=== PATIENT | female | born 1960 | race Caucasian/White ===

== ENCOUNTER 2019-11-22 01:09 | Day surgery (SDC) | payer BC, SELFPAY ==
[2019-11-20 10:15] VITALS: BMI 26.4
[2019-11-22 09:16] VITALS: BP 127/77; PULSE 91; RESP 18; TEMP 36.5; O2SAT 100; BMI 26.6
--- NOTE | 2019-11-22 09:17 | WPDANESEPPF ---
Anes - Initial Pre Proc Eval Procedure: Operation Date: 11/22/19 10:00 Proposed Procedures p Esophagogastroduodenoscopy & Screen Colonoscopy - David Short MD Date/Time: 11/22/19 09:17 Surgeon: Daivd Short MD Pre Op Diagnosis: Abdomen Pain, Neoplasm Screening Patient Data Age: 59 Gender: F Height: 5 ft 4 in Weight: 70 kg Allergies Allergy/AdvReac Type Severity Reaction Status Date / Time Penicillins Allergy Unknown Unknown Verified 11/22/19 08:55 Home Medications Medication Instructions Recorded Confirmed Type albuterol sulfate 90 mcg/actuation 2 inhalation INHALATION Q4H PRN 07/31/19 11/22/19 Rx aerosol inhaler #18 gm omeprazole 40 mg capsule,delayed See Rx Instructions .ROUTE 09/12/19 11/22/19 Rx release .COMPLEX #90 cap duloxetine 30 mg capsule,delayed 30 mg PO DAILY 10/04/19 11/22/19 History release fexofenadine 60 mg-pseudoephedrine 1 tablet PO DAILY 10/04/19 11/20/19 History ER 120 mg tablet,ext.release,12 hr fluticasone 250 mcg-salmeterol 50 1 inhalation INHALATION BID 10/04/19 11/22/19 History mcg/dose blistr powdr for inhalation Patient hx anesthesia problems: none Family hx anesthesia problems: none PMFSH Past Medical History Medical History Bipolar affective disorder, currently manic, mild Colon cancer screening Mild intermittent asthma without complication Family History Family History Other Cerebrovascular accident Hypertension Social History Social History Smoking status: Never smoker Alcohol intake: current Substance use: never Substance use type: does not use Gender identity (if verbalized by the patient): Female Spiritual care concerns: No Agree to blood products: Yes Anes - Eval Final PreProcedure Day of Procedure 11/22/19 09:17 Patient weight: overweight Heart: regular rate and rhythm Lungs: clear to auscultation Airway: Mallampati scale class II Neurological: alert and oriented Last oral intake: >/= 8 hours ASA classification: II Emergent: no Anesthetic plan: proceed Anesthesia type and monitoring: general GIVS and standard monitoring Informed Consent: The patient's anesthetic plan and its attendant risks and benefits were discussed with the patient/family/POA. Questions were solicited and answers provided to the satisfaction of the patient/family/POA.
[2019-11-22] MEDS: LACTATED RINGERS 1,000 ML 150 ML IV CONT (09:20)
--- NOTE | 2019-11-22 09:44 | PM.HPGS ---
History of Present Illness History of Present Illness Consent: Risks, benefits, and alternatives have been discussed and questions answered. Patient agrees to proceed with procedure. Chief complaint: Abdomen Pain, Neoplasm Screening Narrative: Carley Zapata is a 59 year old female here with luq pain better with ppi, also needs colon screening Review of Systems Constitutional: Constitutional: Denies headache(s) and Denies weakness Eyes: Eyes: Denies blurry vision ENT: Reports Normal hearing present, Denies headache(s) and Denies neck pain Cardiovascular: Cardiovascular: Denies chest pain and Denies dyspnea Respiratory: Respiratory: Denies dyspnea Gastrointestinal: Gastrointestinal: Reports no additional gastrointestinal complaints Genitourinary: Genitourinary: Denies dysuria Musculoskeletal: Musculoskeletal: Denies neck pain Integumentary/Breasts: Skin/Breast: Denies dry skin Neurologic: Reports Normal hearing present, Denies headache(s) and Denies weakness Psychiatric: Psychiatric: Denies anxiety Endocrine: Endocrine: Denies change in body appearance Hematologic/Lymphatic: Hematologic/Lymphatic: Denies easy bleeding Allergic/Immunologic: Allergic/Immunologic: Denies urticaria [facility] Past Medical History Medical History Bipolar affective disorder, currently manic, mild Colon cancer screening Mild intermittent asthma without complication Family History Family History Other Cerebrovascular accident Hypertension Social History Social History Smoking status: Never smoker Alcohol intake: current Substance use: never Substance use type: does not use Gender identity (if verbalized by the patient): Female Spiritual care concerns: No Agree to blood products: Yes Meds Home Medications and Allergies Home Medications Medication Instructions Recorded Confirmed Type albuterol sulfate 90 mcg/actuation 2 inhalation INHALATION Q4H PRN 07/31/19 11/22/19 Rx aerosol inhaler #18 gm omeprazole 40 mg capsule,delayed See Rx Instructions .ROUTE 09/12/19 11/22/19 Rx release .COMPLEX #90 cap duloxetine 30 mg capsule,delayed 30 mg PO DAILY 10/04/19 11/22/19 History release fexofenadine 60 mg-pseudoephedrine 1 tablet PO DAILY 10/04/19 11/20/19 History ER 120 mg tablet,ext.release,12 hr fluticasone 250 mcg-salmeterol 50 1 inhalation INHALATION BID 10/04/19 11/22/19 History mcg/dose blistr powdr for inhalation Allergies Allergy/AdvReac Type Severity Reaction Status Date / Time Penicillins Allergy Unknown Unknown Verified 11/22/19 08:55 Vital Signs Vital Signs - 24 hr 11/22/19 09:16 Temperature 97.7 F Pulse Rate 91 Respiratory Rate 18 Blood Pressure 127/77 Pulse Oximetry 100 Exam Const: General: comfortable and no acute distress HENMT: General nose exam: Normal nares present Eyes: General: appearance normal, both eyes and all related structures Neck: Neck: no JVD Resp: Auscultation: clear to auscultation bilaterally Cardio: Rate: regular rate Rhythm: regular rhythm GI: Inspection: non-distended GI Palp: Yes Soft to palpation Skin: General skin exam: normal color Neuro: General: gait normal Speech: normal speech Extrem: General: normal to inspection Psych: Mental Status: mental status grossly normal Assessment and Plan Assessment and plan (1) Chronic LUQ pain: Code(s): R10.12 - Left upper quadrant pain; G89.29 - Other chronic pain Status: Acute Assessment and Plan: will proceed with egd, consider bx (2) Colon cancer screening: Code(s): Z12.11 - Encounter for screening for malignant neoplasm of colon Status: Acute Assessment and Plan: needs colonoscopy
[2019-11-22 10:19] VITALS: BP 113/57; PULSE 91; RESP 19; O2SAT 99
--- NOTE | 2019-11-22 10:22 | SUR.PHASEII ---
1020 patient awake, talking with doctor. Jenna RAVI
[2019-11-22 10:30] VITALS: BP 113/68; PULSE 91; RESP 17; O2SAT 100
[2019-11-22 10:40] VITALS: BP 119/68; PULSE 89; RESP 15; O2SAT 100
== END 2019-11-22 10:50 | disposition home or self-care (01) ==
PROVIDERS: PCP Family Medicine; Visit Provider Internal Medicine Gastroenterology
PROC: 0DJ08ZZ Inspection of Upper Intestinal Tract, Via Natural or Artificial Opening Endoscopic (ICD-10-PCS; CPT 43235; principal; 2019-11-22 10:00)
DX: Z12.11 Encounter for screening for malignant neoplasm of colon (principal); K57.30 Diverticulosis of large intestine without perforation or abscess without bleeding; K44.9 Diaphragmatic hernia without obstruction or gangrene; K29.50 Unspecified chronic gastritis without bleeding; R10.12 Left upper quadrant pain; G89.29 Other chronic pain; F31.9 Bipolar disorder, unspecified; J45.20 Mild intermittent asthma, uncomplicated
CPT/HCPCS: 45378; 43239; 88305; J2704; J7120

== ENCOUNTER 2020-11-29 16:52 | Outpatient (CLI) | payer BC, SELFPAY ==
--- NOTE | ~2020-11-29 | US_ITS ---
EXAMINATION: US venous doppler LE RT EXAM DATE: 11/29/2020 17:15 INDICATION: M79.89 - Other specified soft tissue disorders right leg pain. TECHNIQUE: Multiple grayscale, color flow and Doppler images of the right lower extremity deep venous system were obtained and reviewed. Comparison is made to prior examination from 11/11/2018. FINDINGS: The right common femoral, femoral and profunda veins demonstrate normal color flow, respira tory variation, augmentation and compressibility. Compressibility, color flow confirmed within the r ight popliteal, posterior tibial, peroneal, and greater saphenous veins. IMPRESSION: 1. No right lower extremity deep venous thrombosis. Reviewed, dictated and finalized at location A.
== END 2020-11-29 16:53 | disposition home or self-care (01) ==
PROVIDERS: PCP Family Medicine; Visit Provider Family Medicine
DX: C50.919 Malignant neoplasm of unspecified site of unspecified female breast (principal); M79.604 Pain in right leg; M79.89 Other specified soft tissue disorders
CPT/HCPCS: 93971

== ENCOUNTER → 2020-11-30 11:49 | Outpatient (CLI) | payer BC, SELFPAY ==
--- NOTE | ~2020-11-30 | XR_ITS ---
XR knee RT 3V DATE: 11/30/2020 12:17 INDICATION: Right knee pain TECHNIQUE: [place] and standing AP and lateral views COMPARISON: None FINDINGS: No fracture or dislocation or joint effusion. No periosteal reaction or bone destruction, c hondrocalcinosis or radiopaque intra-articular loose body. There is slight periarticular spurring of the patella. Minimal loss of height at medial compartment j oint space Joint spaces are otherwise relatively preserved. IMPRESSION: Mild osteoarthritis Reviewed, dictated and finalized at location A. IMPRESSION: Mild osteoarthritis
== END ==
PROVIDERS: PCP Family Medicine; Visit Provider Family Medicine
DX: M25.561 Pain in right knee (principal); M17.11 Unilateral primary osteoarthritis, right knee
CPT/HCPCS: 73562

== ENCOUNTER 2021-04-30 16:16 | Outpatient (CLI) | payer BC, SELFPAY ==
--- NOTE | ~2021-04-30 | US_ITS ---
EXAMINATION: US venous doppler [facility] DATE: 04/30/2021 16:47 INDICATION: Left lower limb swelling. TECHNIQUE: Grayscale ultrasound images without and with compression and Doppler ultrasound images of the bilateral lower extremity veins were obtained. COMPARISON: Ultrasound 11/11/2018, 11/29/2020 FINDINGS: The visualized portions of right common femoral vein, profunda (deep) femoral vein, femoral vein, pop liteal vein, peroneal veins, posterior tibial veins, and greater saphenous vein outflow are patent. The visualized portions of left common femoral vein, profunda femoral vein, femoral vein, popliteal v ein, peroneal veins, posterior tibial veins, and greater saphenous vein outflow are patent. IMPRESSION: 1. No deep venous thrombosis. Reviewed, dictated and finalized at location A.
== END 2021-04-30 16:17 | disposition home or self-care (01) ==
LOC: ANHIMG 16:21
PROVIDERS: PCP Family Medicine
DX: M79.89 Other specified soft tissue disorders (principal)
CPT/HCPCS: 93970

== ENCOUNTER 2024-05-11 08:30 | Outpatient (RCR) | payer BC, SELFPAY ==
--- NOTE | 2024-02-17 09:49 | OTOPEVAL1 ---
Assessment and note entered by Ramon Woods, LIO/Krysta, CHT OT Evaluation 02/17/24 Diagnosis Trigger thumb Subjective Information Patient reports experiencing a trigger thumb on her right, dominant thumb for about 2-3 months. She reports her symptoms are the worst first thing in the morning and before bed. She reports when she gets moving it feels better. Patient reports difficulties with turning a doorknob, lifting a cup of coffee, etc. Having to intermittently use her left hand for tasks. Reported Pain Level Pain Score 0: Self Report Additional Pain Score Comments Patient reports the thumb hasn't been painful in the last week, but she is fearful that the pain is going to come back. Assessment OT Clinical Summary Patient referred to OT with dx of trigger thumb of her right, dominant hand. She presents with catching with active thumb IP flexion. Passive ROM is WNL. Fabricated and issued a custom thumb IP immobilizer to rest the FPL tendon. Issued passive and active ROM HEP, discussed use of heat/ice, and use of a finger compression sleeve to reduce swelling. She demonstrates excellent understanding of all materials. Continued follow up indicated for HEP progression, manual therapy, use of modalities, and any splinting modifications. Plan of Care Interventions Therapeutic Exercise,Manual Therapy,Therapeutic Activities,Hot Pack/Cold Pack,Check Out for Orthotic/Pr,Ultrasound,Paraffin OT Services Indicated Yes Treatment Frequency and 1x/week for 4 visits Duration These treatments will address the objective and functional deficits as defined above. The patient will be advanced safely and appropriately in order for the patient to progress towards his/her prior level of function. Additional exercises will be introduced and as well as a comprehensive home exercise program upon discharge, if needed, ?to ensure carryover of functional gains achieved in the clinic. This treatment plan has been reviewed and agreement upon by the patient.
--- NOTE | 2024-02-17 09:49 | OPREHPOC ---
Outpatient Therapy Plan of Care This is a Multidisciplinary Plan of Care that may contain components documented by all disciplines (PT, OT, and ST.) OT Problem 1 OT Problem #1 Knowledge Deficit OT Goal 1 Goal 1. Patient to be independent with instructed materials. 2. Patient to adhere to splint wearing schedule and splint weaning schedule as indicated. Target Visit 4 OT Problem 2 OT Problem #2 Impaired Flexibility OT Goal 1 Goal 1. Patient to be able to complete composite thumb flexion without signs of triggering. Target Visit 4 OT Problem 3 OT Problem #3 Impaired Strength OT Goal 1 Goal 1. Patient to be able to complete right hand remedy developer/ pinch strengthening with yellow putty without signs of triggering. Target Visit 4
--- NOTE | 2024-03-30 14:01 | OTOPPROG ---
Assessment and note entered by Ramon Woods, LIO/Krysta, CHT OT Progress Update 03/30/24 Assessment Status Progress Diagnosis Trigger thumb Subjective Information Patient reports overall feeling progress in the thumb, noting she is experiencing less triggering. She continues to experience some triggering and she sometimes has to use her left hand to straighten the thumb, but overall she has had less instances of this. She has a thumb IP immobilizer that she finds hard to wear at work or when walking the dog. She has been trying to ice it at night when she feels like her inflammation is at it's worse. She has tried to modify tasks by using her left hand to allow her right thumb to rest. Assessment OT Clinical Summary Patient referred to OT with dx of trigger thumb of her right, dominant hand. She has been participating in OT x5 weeks with the goal of reducing inflammation and triggering. She is making progress with reduced catching and not as strong of a catch when it does trigger. She continues to display signs of a trigger finger, however. Continued skilled OT indicated to continue to reduce inflammation and to improve functional strength of her right hand/thumb. Plan of Care Interventions Therapeutic Exercise,Manual Therapy,Therapeutic Activities,Hot Pack/Cold Pack,Check Out for Orthotic/Pr,Ultrasound,Paraffin OT Services Indicated Yes Treatment Frequency and 1x/week for 5 visits Duration These treatments will address the objective and functional deficits as defined above. The patient will be advanced safely and appropriately in order for the patient to progress towards his/her prior level of function. Additional exercises will be introduced and as well as a comprehensive home exercise program upon discharge, if needed, ?to ensure carryover of functional gains achieved in the clinic. This treatment plan has been reviewed and agreement upon by the patient.
--- NOTE | 2024-03-30 14:01 | OPREHPOC ---
Outpatient Therapy Plan of Care This is a Multidisciplinary Plan of Care that may contain components documented by all disciplines (PT, OT, and ST.) OT Problem 1 OT Problem #1 Knowledge Deficit OT Goal 1 Goal / Goal Update 1. Patient to be independent with instructed materials. 2. Patient to adhere to splint wearing schedule and splint weaning schedule as indicated. ---OT POC UPDATE 03/30/24--- 1. Met 2. Met Target Visit 10 OT Problem 2 OT Problem #2 Impaired Flexibility OT Goal 1 Goal / Goal Update 1. Patient to be able to complete composite thumb flexion without signs of triggering. ---OT POC UPDATE 03/30/24--- 1. Inconsistently met, continue goal Target Visit 10 OT Problem 3 OT Problem #3 Impaired Strength OT Goal 1 Goal / Goal Update 1. Patient to be able to complete right hand fire regulator/ pinch strengthening with yellow putty without signs of triggering. ---OT POC UPDATE 03/30/24--- 1. Not met, continue goal Target Visit 10
--- NOTE | 2024-05-11 09:14 | OTOPDC ---
Assessment and note entered by Ramon Woods, LIO/Krysta, CHT OT Discharge Summary 05/11/24 Diagnosis Trigger thumb Subjective Information Patient reports progress with the thumb, noting she has experienced only a couple instances of triggering in the last 2 weeks and each instance was only 1 trigger and it did not continue. She has returned to doing dishes, holding the dog leash, sewing, and she potted some plants the other day without difficulty. She has been experiencing no pain. She has progressed out of wearing the splint. She does not feel like she needs to modify tasks and she does not avoid using her right hand. Reported Pain Level Pain Score 0: Self Report Additional Pain Score Comments No pain . Reports fluctuating soreness and stiffness . Assessment OT Clinical Summary Patient referred to OT with dx of trigger thumb of her right, dominant hand. She has been participating in OT x11 weeks with the goal of reducing inflammation and triggering. She has made excellent progress - she has returned to using her hand unrestricted. She is completing resistive pinching without triggering. She has reported 2 instances of catching in the last 2 weeks, however , she is currently independent with all materials. Discussed continued strengthening and use of ice at the end of her day to continue to manage residual inflammation of the tendon. She demonstrates and verbalizes excellent understanding of all materials. D/C with HEP. Plan of Care OT Services Indicated No
== END 2024-05-11 10:15 | disposition home or self-care (01) ==
LOC: ANHGOSHOT 08:30
PROVIDERS: PCP Nurse Practitioner Family; Visit Provider Nurse Practitioner Family
DX: M65.319 Trigger thumb, unspecified thumb (principal)
CPT/HCPCS: 97018; 97035; 97110; 97140; 97165; L3933

== ENCOUNTER 2024-11-27 11:06 | Observation (INO) | payer BC, SELFPAY ==
[2024-11-27] VITALS (26 sets, daily range): BP systolic 94–127; BP diastolic 52–95; PULSE 68–158; RESP 14–25; TEMP 36.6–36.8; O2SAT 94–100; BMI 24.6
--- NOTE | 2024-11-27 | ECHO_ITS ---
Patient Info Name: Carley Zapata Age: 64 years : 1960 Gender: Female Ht: 64 in Wt: 143 lbs BSA: 1.72 m2 HR: 89 bpm BP: 101 / 82 mmHg Heart Rhythm: Atrial Fibrillation Technical Quality: Good Exam Date: 11/27/2024 1:49 PM Exam Location: Echo Lab Patient Status: Emergency Admit Date: 11/27/2024 Staff Ordering Physician: Richard Jacob MD Industrial Mechanic: Dahiana Valderrama RDCS Attending Provider: Richard Jacob MD Referring Physician: Cecil MATTA; Exam Type: CA echo doppler color flow Study Info Indications - New onset Afib Complete two-dimensional, color flow and Doppler transthoracic echocardiogram is performed. Summary 1. Complete two-dimensional, color flow and Doppler transthoracic echocardiogram is performed. 2. There is normal biventricular size and systolic function. 3. There are no significant valvular abnormalities. 4. Dilated inferior vena cava with <50% collapse upon inspiration consistent with significantly elevated right atrial pressure, 15 mmHg. Left Ventricle The left ventricle is normal in size and systolic function. The left ventricular ejection fraction is visually estimated to be 50-55%. Right Ventricle The right ventricle is normal in size and systolic function. Left Atria The left atrium is normal size. Right Atria The right atrium is normal size. Atrial Septum The atrial septum visually appears intact. Aortic Valve The aortic valve is probably trileaflet and opens well. There is no aortic regurgitation. Pulmonic Valve The pulmonic valve is not well visualized. There is no color Doppler evidence of pulmonic valve regurgitation. Mitral Valve The mitral valve leaflets are thin and pliable. There is trace mitral regurgitation. Tricuspid Valve The tricuspid valve is normal. There is mild tricuspid regurgitation. Pericardium/Pleural Pericardium is normal in appearance with no evidence for significant pericardial effusion. Inferior Vena Cava Dilated inferior vena cava with <50% collapse upon inspiration consistent with significantly elevated right atrial pressure, 15 mmHg. Dilated inferior vena cava with <50% collapse upon inspiration consistent with significantly elevated right atrial pressure, 15 mmHg. Left Ventricular Outflow Tract Name Value Normal LVOT 2D LVOT Diameter 2.0 cm LVOT Doppler LVOT Peak Gradient 5 mmHg LVOT Mean Gradient 2 mmHg LVOT VTI 20 cm LVOT VTI/AV VTI Ratio 0.9 LVOT Stroke Volume 61 ml LVOT CO 5.6 l/min LVOT CI 3.2 l/min/m2 Pulmonic Valve Name Value Normal RVOT Doppler RVOT Peak Gradient 2 mmHg PV Doppler PV Peak Gradient 2 mmHg Mitral Valve Name Value Normal MV Doppler MV Decel [place] 580 cm/s2 MV PHT 47 ms MV Area (PHT) 4.7 cm2 4.0-5.0 MV Diastolic Function MV E Peak Velocity 95 cm/s MV A Peak Velocity 56 cm/s MV E/A 1.7 MV Decel Time 163 ms MV Annular TDI MV E/e' (Septal) 10.5 <=8.0 MV E/e' (Lateral) 10.3 <=8.0 MV E/e' (Average) 10.4 Tricuspid Valve Name Value Normal TV Regurgitation Doppler TR Peak Velocity 235 cm/s TR Peak Gradient 22 mmHg Estimated PAP/RSVP RA Pressure 15 mmHg <=5 PA Systolic Pressure 37 mmHg <36 RV Systolic Pressure 37 mmHg <36 Aortic Valve Name Value Normal AV Doppler AV Peak Velocity 115 cm/s AV Peak Gradient 5 mmHg AV Mean Gradient 3 mmHg AV VTI 23 cm AV Area (Cont Eq VTI) 2.7 cm2 >=3.0 AV Area (Cont Eq [place]) 2.8 cm2 AV Regurgitation 2D LVOT Area 3.0 cm2 Ventricles Name Value Normal LV Dimensions 2D/MM IVS Diastolic Thickness (2D) 0.7 cm 0.6-1.0 LVID Diastole (2D) 4.0 cm 3.8-5.2 LVIW Diastolic Thickness (2D) 0.7 cm 0.6-0.9 LVID Systole (2D) 2.9 cm 2.2-3.5 LVOT Diameter 2.0 cm LV Mass (2D Cubed) 75.37 g 67.00-162.00 LV Mass Index (2D Cubed) 44 g/m2 43-95 Relative Wall Thickness (2D) 0.32 LV Fractional Shortening/Ejection Fraction 2D/MM LV Fractional Shortening (2D) 29 % 27-45 LV EF (2D [place]) 56 % 54-74 LV Diastolic Volume (4C MOD) 48 ml LV EF (4C MOD) 62 % LV Diastolic Volume (2C MOD) 44 ml LV EF (2C MOD) 66 % LV Diastolic Volume (BP MOD) 48 ml 46-106 LV Diastolic Volume Index (BP MOD) 28 ml/m2 29-61 LV Systolic Volume (BP MOD) 17 ml 14-42 LV Systolic Volume Index (BP MOD) 10 ml/m2 8-24 LV EF (BP MOD) 64 % 54-74 LV Diastolic Length (4C) 7.1 cm LV Systolic Length (4C) 6.0 cm LV Stroke Volume (4C MOD) 29 ml Atria Name Value Normal LA Dimensions LA Volume (4C A-L) 30 ml LA Volume (BP A-L) 39 ml RA Dimensions RA Area (4C) 16.2 cm2 <=18.0 Report Signatures
--- NOTE | ~2024-11-27 | XR_ITS ---
EXAMINATION: XR chest 2V DATE: 11/27/2024 11:35 INDICATION: Shortness of breath. Heart palpitations. TECHNIQUE: PA and lateral views of the chest were obtained. COMPARISON: Chest radiograph dated 09/28/2005 FINDINGS: The lungs remain clear with no focal airspace opacities, pulmonary edema, pleural effusion or pneumot horax. The cardiomediastinal silhouette is normal. Surgical clips in the upper right breast consisten t with interval excisional biopsy. IMPRESSION: 1. No acute cardiopulmonary disease. Reviewed, dictated and finalized at location A.
--- NOTE | ~2024-11-27 | NM_ITS ---
EXAMINATION: NM bruno stress w perfusion DATE: 11/28/2024 12:04 INDICATION: Elevated troponin. Paroxysmal atrial fibrillation TECHNIQUE: Rest images were obtained following intravenous administration of 10.5 mCi Tc99m tetrofosm in (Myoview). The patient was infused intravenously with Lexiscan (Regadenoson). Then, 34.9 mCi Tc99m tetrofosmin (Myoview) was administered intravenously, and stress images were obtained. Data was norma nstructed into short axis and horizontal and vertical long axis SPECT images. Gated SPECT images were also obtained. COMPARISON: None. FINDINGS: There is no definite reversible or fixed perfusion abnormality to suggest ischemia or infar ction. There is normal left ventricular chamber size, wall motion and ejection fraction. Left ventr icular ejection fraction measures >70%. IMPRESSION: 1. Normal myocardial perfusion at rest and during stress. 2. Left ventricular ejection fraction measuring >70%. Reviewed, dictated and finalized at location A.
--- NOTE | 2024-11-27 11:08 | ECG_ITS ---
Test Date: 2024-11-27 11:18:01 Measurements Intervals [place] Rate: 153 P: 0 PA: 0 QRS: 60 QRSD: 72 T: 26 QT: 229 QTc: 366 Interpretive Statements ATRIAL FIBRILLATION WITH RAPID VENTRICULAR RESPONSE NONSPECIFIC ST & T-WAVE ABNORMALITY ABNORMAL RHYTHM ECG No previous ECG available for comparison Electronically Signed On 11-28-2024 14:36:58 CDT by Kiran Jeronimo M.D.
--- OUTSIDE RECORDS SUMMARY | 2024-11-27 11:25 | XMS_ITS | Clinical Summary ---
Author Organization Darin Locke [facility] Address [address] [place] [address] Care Team Providers Care Dust Collector Attendant Name Role Phone Stefano Mosquera MD Primary Care Provider [phone] Allergies Active Allergy Reactions Criticality Noted Date Comments Gadolinium-Containing Contra st Media Rash Low 11/18/2020 Latex Rash Low 11/04/2020 Penicillin Nausea and Vomiting Low 11/04/2020 Medications Advair Diskus 250-50 mcg/dose disk inhaler Take 1 Puff by inhalation daily. 10/29/19 21 Active omeprazole (PriLOSEC) 40 mg Capsule, Delayed Release(E.C.) Take 40 mg by mouth 1 time daily as needed for Other (See Comment) (reflux). 10/31/19 21 Active fexofenadine (LUCI) 60 mg tablet Take 60 mg by mouth 2 times daily as needed for Allergies. Active multivit with calcium,iron,mi n (WOMEN'S MULTIPLE VITAMINS ORAL) Take by mouth. Active albuterol HFA 90 mcg inhaler Take 2 Puffs by inhalation every 6 hours as needed for Shortness of Breath. Active vitamin D3-folic acid 5,000 unit- 1 mg Tablet Take 1 Tablet by mouth daily. Active fexofenadine-ps eudoephedrine SR 12 hour (LUCI-D) 60-120 mg tablet Take 1 Tablet by mouth 2 times daily as needed for Allergies or Congestion. Active ascorbic acid (VITAMIN C) 100 mg Tablet, Chewable Take 100 mg by mouth daily. Active lidocaine-prilo lillie (EMLA) 2.5-2.5 % CreamIndication s:HER2-positive carcinoma of right breast (CMS/HCC) Apply to affected area see administration instructions. 30 Gram 3 12/28/19 21 Active prochlorperazin e maleate (COMPAZINE) 10 mg tabletIndicatio ns:HER2-positiv e carcinoma of right breast (CMS/HCC) Take 1 Tablet (10 mg) by mouth every 6 hours as needed for Nausea/Emesis. 60 Tablet 3 12/28/19 21 Active ondansetron (Zofran) 4 mg TabletIndicatio ns:HER2-positiv e carcinoma of right breast (CMS/HCC) Take 1 Tablet (4 mg) by mouth every 8 hours as needed for Nausea/Emesis. 60 Tablet 3 12/28/19 21 Active hydroCHLOROthia zide (MICROZIDE) 12.5 mg capsule Take 12.5 mg by mouth daily. Active alendronate (Fosamax) 70 mg tabletIndicatio ns:Osteopenia, unspecified location Take 1 Tablet (70 mg) by mouth every 7 days. empty stomach before other meds,with 8oz of water, stay upright 30 min 12 Tablet 3 06/16/20 23 Active anastrozole (ARIMIDEX) 1 mg tabletIndicatio ns:Malignant neoplasm of central portion of right breast in female, estrogen receptor positive (CMS/HCC) TAKE 1 TABLET(1 MG) BY MOUTH DAILY 90 Tablet 3 10/13/19 24 Active Active Problems Problem Noted Date Diagnosed Date Vitamin D deficiency 11/22/2020 Malignant neoplasm of centra l portion of right breast in female, estrogen receptor positive 10/17/2020 Cancer Staging:Clinical stage from 11/17/2020:Stage IA(cT1b, cN0, cM0, G3, ER+, VT+, HER2+) - Signed by Ximena Harkins MD on 11/17/2020 HER2-positive carcinoma of right breast 10/18/19 21 Encounters Date Type Department Care Team Description 10/31/2024 External Device Data STL ABSTRACTION Provider, Abstract 09/19/2024 External Device Data STL ABSTRACTION Provider, Abstract 09/06/2024 External Device Data STL ABSTRACTION Provider, Abstract 09/05/2024 External Device Data STL ABSTRACTION Provider, Abstract from Last 3 Months Immunizations Immunization Administration Dates Next Due (Texifter)(12 YR UP) COVID-19 VACCINE - EMERGENCY USE AUTHORIZATION, MRNA, [id number](PF) 30 MCG/0.3 ML IM SUSP 06/26/2021 Family History Medical History Relation Name Comments Healthy Daughter Dementia Father Hypertension Father Anemia Maternal Aunt Cancer Maternal Aunt Blood Endometrial Cancer Maternal Aunt Lymphoma Maternal Aunt Other Maternal Grandfather pneumon ia Unknown Maternal Grandfather wh en mom was 8 Unknown Maternal Grandmother wh en mom was 8 Other Mother Emphysema Paternal Grandfather Diabetes Paternal Grandmother Heart Disease Paternal Grandmother Thyroid Disease Sister Breast Cancer Neg Hx Colon Cancer Neg Hx Ovarian Cancer Neg Hx Relation Name Status Comments Daughter Alive Father (Age 83) Maternal Aunt Alive Maternal Grandfather Maternal Grandmother Mother (Age 62) Paternal Grandfather (Age 89) Paternal Grandmother (Age 83) Sister Alive Social History Tobacco Use Types Packs/Day Years Used Date Smoking Tobacco: Never Smokeless Tobacco: Never Tobacco Cessation:Counseling Given: Not Answered Alcohol Use Standard Drinks/Week Comments Yes 0 (1 standard drink = 0.6 oz pur e alcohol) 3 glasses of wine per month Comments No Sex and Gender Information Value Date Recorded Sex Assigned at Not on file Legal Sex Female 11:02 PM CDT Gender Identity Not on file Sexual Orientation Not on file 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 on file Not on file Not on file Last Filed Vital Signs Vital Sign Reading Time Taken Comments Blood Pressure 127/83 06/07/2024 1:12 PM CLINICAL NURSING INSTRUCTOR Pulse 85 06/07/2024 1:12 PM CLINICAL NURSING INSTRUCTOR Temperature 36.1 C (97 F) 06/07/2024 1:12 PM CLINICAL NURSING INSTRUCTOR Respiratory Rate 16 06/07/2024 1:12 PM CLINICAL NURSING INSTRUCTOR Oxygen Saturation 97% 06/07/2024 1:12 PM CLINICAL NURSING INSTRUCTOR Inhaled Oxygen Concentration - - Weight 67.6 kg (149 lb) 06/07/2024 1:12 PM CLINICAL NURSING INSTRUCTOR Height 162.6 cm (5' 4 ) 06/07/2024 1:12 PM CLINICAL NURSING INSTRUCTOR Body Mass Index 25.58 06/07/2024 1:12 PM CLINICAL NURSING INSTRUCTOR Plan of Treatment Upcoming Encounters Date Type Department Care Team (Late st Contact Info) Description 06/12/2025 1:20 PM CLINICAL NURSING INSTRUCTOR Office Visit [facility] Oncology and Hematology [facility] [address] [facility] [address] [place] [address] [place] [phone] [address] Health Maintenance Due Date Last Done Comments Pre-Diabetes and Diabetes Screening 1960 DTAP/TDAP/TD VACCINES (1 - Tdap) 1979 HPV/Cotest (21-29) 1981 HPV/Cotest (30-65) 1990 COLORECTAL SCREENING 2005 Colorectal Cancer Screening 2005 FIT-DNA Q 3 years 2005 FIT/FOBT Q 1 year 2005 Flex Sig/CT Colonography Q 5 years 2005 ZOSTER VACCINE (1 of 2) 2010 INFLUENZA VACCINE (#1) 2024 COVID-19 Vaccine (2 - 2023-2 5 season) 2024 06/26/2021 BREAST CANCER SCREENING 04/12/2025 04/12/20 24, 04/05/2023, 10/09/2021, Additional history exists CERVICAL CANCER SCREENING 04/17/2027 PAP SMEAR 04/17/2027 04/17/2024, 04/05/2023 RSV VACCINE (60+ or ) (1 - 1-dose 75+ series) 2035 Medical Devices Implanted Type Area Director Of Preclinical Research Device Identifier Shelf Expiration Date Model / Serial / Lot Feed Preparation Operator Clip Surgiclip Ii Carlos 11.5in [id number] - [id number] Implanted:Qty: 2 on 12/12/2020 by Miguelina Ro MD at [facility] Right: Breast [employer] - COVIDIEN 07/18/2025 [id number] / / Explanted Type Area Director Of Preclinical Research Device Identifier Shelf Expiration Date Model / Serial / Lot Port Pwrprt Clearvue Isp 8fr Mri [id number] Implanted:Qty: 1 on 01/10/2021 by Steve Muhammad III, MD Explanted:Qty: 1 on 07/06/2022 by Ghassan Keith MD Port Left: Chest Wall CR BARD- [employer] 03/18/2022 [id number] / / [id number] Description:23 cm reg power port placed lt ij EXPLANTED Procedures Procedure Name Priority Date/Time Associated Diagnosis Comments MAMMO 3D JOSE SCREEN BILAT W OR WO CAD Routine 04/12/2024 10:07 AM CDT Encounter for screening mammogram for breast cancer from Last 3 Months or Most Recently Relevant to Health Maintenance Results * MAMMO 3D JOSE SCREEN BILAT W OR WO CAD (04/12/2024 10:07 AM CDT) Anatomical Region Laterality Modality Breast Bilateral Mammography 04/12/2024 10:0 8 AM CDT Impressions 04/12/2024 10:43 AM CDT IMPRESSION: 1. BI-RADS Category 2. benign findings. Annual screening mammography recommended. 2. Breast Composition: Scattered residual fibroglandular parenchyma. A) A negative report should not delay a biopsy if a dominant or clinically suspicious mass is present. B) Adenosis and dense breasts may obscure an underlying neoplasm. C) Study interpreted with computer-aided detection. MQSA BI-RADS Categories: Category 0 - needs additional imaging evaluation. Category 1 - negative. Category 2 - benign findings. Category 3 - probably benign findings, but short interval followup is recommended. Category 4 - suspicious abnormality-biopsy should be considered. Category 5 - highly suggestive of malignancy and appropriate action should be taken. Narrative 04/12/2024 10:43 AM CDT EXAMINATION: MAMMO 3D JOSE SCREEN BILAT W OR WO CAD WITH 3-D TOMOSYNTHESIS AND COMPUTER-AIDED DETECTION (CAD) DATE: 04/12/2024 10:07 AM COMPARISON STUDIES: April 05, 2023, October 09, 2021. CLINICAL HISTORY: Screening, no complaints. History of right breast CA status post lumpectomy. Encounter for screening mammogram for breast cancer FINDINGS: Bilateral CC, MLO, 2-D and 3-D acquisitions. Scattered residual fibroglandular parenchyma . Similar in appearance and distribution to the previous exams. No evidence of dominant mass, architectural distortion, skin thickening, nipple retraction or suspicious clusters of microcalcifications. Benign calcifications redemonstrated. Post lumpectomy scar in the right redemonstrated.. us Jeremie Cameron MD MAMMO ORDERABLES Final Res ult from Last 3 Months or Most Recently Relevant to Health Maintenance Insurance BC BLUE PREFERRED RX PRIME THERAPEUTICS Commercial BLUE PREFERRED Care Teams Dust Collector Attendant Relationship Specialty Start Date End Date Stefano Mosquera MD [address] [place] [id number] PCP - General Family Practice 03/24/23
--- OUTSIDE RECORDS SUMMARY | 2024-11-27 11:25 | XMS_ITS ---
Author Organization Darin Locke [facility] Address [address] [place] [address] Care Team Providers Care Asset Availability Leader Name Role Phone Stefano Mosquera MD Primary Care Provider [phone] Active Problems Problem Noted Date Diagnosed Date Vitamin D deficiency 11/22/2020 Malignant neoplasm of centra l portion of right breast in female, estrogen receptor positive 10/17/2020 Cancer Staging:Clinical stage from 11/17/2020:Stage IA(cT1b, cN0, cM0, G3, ER+, FL+, HER2+) - Signed by Ximena Harknis MD on 11/17/2020 HER2-positive carcinoma of right breast 10/18/19 21 Current Treatment and Therapy Plans No current plan information found. Past Treatment and Therapy Plans ONCOLOGY TREATMENT Plan Name Start Date Discontinue Date Treatment Medications Discontinue Reason Plan Provider Cycles OP ONC BREAST_TRAST UZUMAB DAY 1_PACLITAXEL WEEKLY_EVERY 21 DAYS X 4 FOLLOWED BY TRASTUZUMAB_ EVERY 21 DAYS TO COMPLETE 1 YEAR 01/29/2021 01/21/2022 PACLitaxel (TAXOL) IVPBtrastuzaaron price (KANJINTI) IVPB Therapy Complete Jorge De La Cruz MD 18 of 18 cycles started Lifetime Dose Tracking * Chemical Lifetime Dose Automatic Entry Manual Entr y trastuzumab 108.12 mg/kg (7,689 mg) 108.12 mg/kg (7,6 89 mg) 0 mg/kg (0 mg)
[2024-11-27] MEDS: ASPIRIN 81 MG CHEWABLE TABLET 324 MG PO (11:40)
[2024-11-27 11:57] LABS: Basophils Absolute Auto 0.1 K/mm3 (0.0-0.1); Basophils Percent Auto 0.7 % (0.2-1.2); Eosinophils Absolute Auto 0.1 K/mm3 (0-0.3); Hematocrit 42.3 % (37.0-47.0); Hemoglobin 13.6 g/dL (12.0-15.0); Immature Granulocyte Absolute 0.04 K/mm3 (0.00-0.031); Immature Granulocyte Percent A 0.4 % (0-0.5); Lymphocytes Absolute Auto 1.26 K/mm3 (0.9-3.2); Lymphocytes Percent Auto 12.6 % (18.3-44.2); Mean Corpuscular HGB Conc 32.2 g/dl (32-36); Mean Corpuscular Hemoglobin 29.7 pg (26-34); Mean Corpuscular Volume 92.4 fl (80-100); Mean Platelet Volume 9.7 fl (7.4-10.4); Monocytes Absolute Auto 0.8 K/mm3 (0.1-0.6); Monocytes Percent Auto 8.3 % (2.6-8.5); Neutrophils Absolute Auto 7.7 K/mm3 (1.3-6.7); Platelet Count Result 276 k/mm3 (150-375); Red Blood Count 4.58 M/mm3 (4.2-5.4); Red Cell Distribution Width 13.8 % (11.5-14.5)
[2024-11-27] MEDS: METOPROLOL TARTRATE INJ 5 MG/5 ML VIAL IV PUSH (12:01)
[2024-11-27 12:04] LABS: Alanine Aminotransferase 26 U/L (6-35); Albumin Level 4.1 g/dL (3.5-5.1); Alkaline Phosphatase 68 U/L (38-126); Anion Gap 6 mmol/L (4-12); Aspartate Amino Transferase 39 U/L (14-36); Bilirubin,Total 0.6 mg/dL (0.2-1.3); Blood Urea Nitrogen 21 mg/dL (7-17); Calcium 8.8 mg/dL (8.4-10.2); Carbon Dioxide 28 mmol/L (22-30); Chloride 106 mmol/L (98-107); Estimated CRCL calculation 60 ml/min; Estimated Glomerular Filt Rate > 60; Glucose 108 mg/dL (65-110); Lipase 88 U/L (23-300); Potassium 4.1 mmol/L (3.4-5.0); Sodium 140 mmol/L (137-145)
[2024-11-27 12:12] LABS: Prothrombin Time 13.1 Seconds (11.1-14.7)
--- NOTE | 2024-11-27 12:12 | ED_ITS ---
HPI - General Adult General Chief complaint: Arrhythmia/Palpitations Stated complaint: abnormal EKG Time Seen by Provider: 11/27/24 11:55 History of Present Illness HPI narrative: [age] old female presenting to the emergency department for evaluation for acute onset of AFib. Patient has no prior history of AFib does have history of asthma. Patient laid down to go sleep last night she felt her heart was racing. Patient initially thought this was due to her asthma so she did take multiple doses of her albuterol. Patient presented to urgent care and was then referred to the emergency department. Upon arrival emergency department patient's heart rate was in the 150 use with AFib. Patient denies any current chest pain or shortness of breath. Patient was well-appearing at time of evaluation. Patient states she has had a recent urinary tract infection that the cultures came back negative. Patient is also undergoing a lot of stress as her has approximately 3 weeks ago. Related Data Home Medications Medication Instructions Recorded Confirmed Last Taken Type fexofenadine 60 mg-pseudoephedrine 1 tablet PO Q12H PRN Allergy 08/22/20 11/27/24 11/25/24 History ER 120 mg tablet,ext.release,12 hr Symptoms (Brie-D 12 Hour) anastrozole 1 mg tablet 1 mg PO DAILY 07/02/21 11/27/24 11/27/24 History cholecalciferol (vitamin D3) 125 5,000 unit PO ONCE 11/27/24 11/27/24 11/27/24 History mcg (5,000 unit) capsule aspirin 325 mg tablet 325 mg PO DAILY 11/28/24 Unknown History atorvastatin 40 mg tablet (Lipitor) 40 mg PO QHS 11/28/24 Unknown History metoprolol tartrate 25 mg tablet 25 mg PO BID 11/28/24 Unknown History Allergies Allergy/AdvReac Type Severity Reaction Status Date / Time latex Allergy Severe Rash Verified 11/27/24 11:39 Iodinated Contrast Media Allergy Intermediate Rash Verified 11/28/24 08:13 Penicillins Allergy Unknown Unknown Verified 11/27/24 11:39 levofloxacin (From Levaquin) AdvReac muscle pain Verified 11/27/24 11:39 Review of Systems 2 Review of Systems: All systems reviewed & are unremarkable except as noted in HPI and below PMFSH Past Medical History Medical History (Updated 12/05/24 @ 22:01 by Richard Jacob MD) Bipolar affective disorder, currently manic, mild Mild intermittent asthma without complication Surgical History Surgical History (Updated 03/15/24 @ 09:19 by Lindsay Hu CMA) H/O lumpectomy History of colonoscopy Family History Family History Other Cerebrovascular accident Hypertension Social History Social History (Updated 11/27/24 @ 08:29 by Luis Antonio Vanegas) Social History: 11/27/24 declined sdaz Smoking status: Never smoker Alcohol intake: never Drinks per week: 2 Alcohol use details: 2 month Substance use: never Substance use type: does not use Do You Feel Safe in your Home?: Yes Lack of Transportation: No Lack of Food: Never True Current Housing: I Have Housing Concerned About Future Housing: No Difficulty Paying Gas/Electric Bills: No Difficulty Paying for Meds: No Currently Unemployed: No Education: Bachelor's Degree Difficulty w/ Childcare or Family Care: No Living arrangements: with family Occupation/Education: occupation Gender identity (if verbalized by the patient): Female Spiritual care concerns: No Agree to blood products: Yes Exam 2 Narrative: APPEARANCE: Well appearing, no pain, no distress, well-nourished. HEAD: normocephalic, atraumatic. EYES: PERRLA/EOMI, conjunctivae clear. NOSE: Normal no drainage EARS:TMS clear with good light reflex. THROAT: Pharynx clear, no exudate. NECK: Supple. No adenopathy, no masses. RESPIRATORY: Airway patent, respirations nonlabored. Clear to auscultation bilaterally, no rales, rhonchi, wheezing. CARDIOVASCULAR: AFib with RVR ABDOMINAL: Soft, nontender, nondistended, normal bowel sounds MUSCULOSKELETAL: Moves all extremities. Strength/ROM intact, No edema, No calf tenderness. NEURO: Alert. Cranial nerves II through XII intact. Good gait. Good coordination SKIN: Warm, dry. Normal Color PSYCHIATRIC: Normal affect/mood. Course Vital Signs Vital signs: Vital Signs Temperature 97.8 F 11/27/24 11:10 Pulse Rate 158 H 11/27/24 11:10 Respiratory Rate 16 11/27/24 11:10 Blood Pressure 115/89 11/27/24 11:10 Pulse Oximetry 97 11/27/24 11:10 Oxygen Delivery Room Air 11/27/24 11:10 Temperature 98.3 F 11/28/24 15:16 Pulse Rate 77 11/28/24 15:16 Respiratory Rate 18 11/28/24 15:16 Blood Pressure 104/52 L 11/28/24 15:16 Pulse Oximetry 100 11/28/24 15:16 Oxygen Delivery Room Air 11/28/24 09:34 Medical Decision Making MDM Narrative Medical decision making narrative: [age] old female presents emergency department for evaluation for acute onset AFib. Patient was found to have an elevated troponin of 1.1. Case was discussed with cardiology and hospitalist patient was admitted for further evaluation. Patient was started on heparin at time of admission. Differential Diagnosis Differential Diagnosis: AFib, a flutter, sinus tach, ACS, CAD, NSTEMI Vital Signs Vital Signs: Vital Signs Temperature 97.8 F 11/27/24 11:10 Pulse Rate 158 H 11/27/24 11:10 Respiratory Rate 16 11/27/24 11:10 Blood Pressure 115/89 11/27/24 11:10 Pulse Oximetry 97 11/27/24 11:10 Oxygen Delivery Room Air 11/27/24 11:10 Temperature 98.3 F 11/28/24 15:16 Pulse Rate 77 11/28/24 15:16 Respiratory Rate 18 11/28/24 15:16 Blood Pressure 104/52 L 11/28/24 15:16 Pulse Oximetry 100 11/28/24 15:16 Oxygen Delivery Room Air 11/28/24 09:34 Lab Data Lab results reviewed: Yes I reviewed the patient's lab results. 11/28/24 03:07 11/28/24 03:07 Labs: Lab Results 11/27/24 Range/Units 11:41 WBC 10.0 (4.5-10.0) K/mm3 RBC 4.58 (4.2-5.4) M/mm3 Hgb 13.6 (12.0-15.0) g/dL Hct 42.3 (37.0-47.0) % MCV 92.4 (80-100) fl MCH 29.7 (26-34) pg MCHC 32.2 (32-36) g/dl RDW 13.8 (11.5-14.5) % Plt Count 276 (150-375) k/mm3 MPV 9.7 (7.4-10.4) fl Immature Gran % (Auto) 0.4 (0-0.5) % Neut % (Auto) 77.0 H (45.5-73.1) % Lymph % (Auto) 12.6 L (18.3-44.2) % Emanuel % (Auto) 8.3 (2.6-8.5) % Eos % (Auto) 1.0 (0-4.4) % Baso % (Auto) 0.7 (0.2-1.2) % Lymph # (Auto) 1.26 (0.9-3.2) K/mm3 Emanuel # (Auto) 0.8 H (0.1-0.6) K/mm3 Eos # (Auto) 0.1 (0-0.3) K/mm3 Baso # (Auto) 0.1 (0.0-0.1) K/mm3 Abs Immat Gran (auto) 0.04 H (0.00-0.031) K/mm3 Absolute Neuts (auto) 7.7 H (1.3-6.7) K/mm3 Absolute Nucleated RBC 0.000 (0.0-0.012) K/mm3 Nucleated RBC % 0.0 (0.0-0.2) % PT 13.1 (11.1-14.7) Seconds INR 1.0 APTT 22.8 (22.3-36.8) Seconds Sodium 140 (137-145) mmol/L Potassium 4.1 (3.4-5.0) mmol/L Chloride 106 (98-107) mmol/L Carbon Dioxide 28 (22-30) mmol/L Anion Gap 6 (4-12) mmol/L BUN 21 H (7-17) mg/dL Creatinine 0.71 (0.7-1.0) mg/dL Estim Creat Clear Calc 60 ml/min Estimated GFR > 60 (59 - ) Glucose 108 (65-110) mg/dL Calcium 8.8 (8.4-10.2) mg/dL Magnesium 2.1 (1.6-2.3) mg/dL Total Bilirubin 0.6 (0.2-1.3) mg/dL AST 39 H (14-36) U/L ALT 26 (6-35) U/L Alkaline Phosphatase 68 (38-126) U/L Troponin I 1.100 H* (0.000-0.034) ng/mL NT-Pro-B Natriuret Pep 1400 H (19.9-100) pg/mL Total Protein 7.0 (6.3-8.2) g/dL Albumin 4.1 (3.5-5.1) g/dL Lipase 88 (23-300) U/L TSH (Reflex) 1.240 (0.465-4.68) uIU/mL Critical Care Time Critical Care Time Critical Care Time: Yes Total Critical Care Time: 35 Discharge Plan Discharge Clinical Impression: Atrial fibrillation Patient Disposition: Still a Patient Condition: Improved
[2024-11-27 12:13] LABS: Partial Thromboplastin Time 22.8 Seconds (22.3-36.8)
--- OUTSIDE RECORDS SUMMARY | 2024-11-27 12:20 | XMS_ITS | Clinical Summary ---
Author Organization Darin Locke [facility] Address [address] [place] [address] Care Team Providers Care Construction Site Crossing Guard Name Role Phone Stefano Mosquera MD Primary Care Provider [phone] Allergies Active Allergy Reactions Criticality Noted Date [...] from 11/17/2020:Stage IA(cT1b, cN0, cM0, G3, ER+, UT+, HER2+) - Signed by Ximena Harkins MD [...] Months Immunizations Immunization Administration Dates Next Due (Beyond the Rack)(12 YR UP) COVID-19 VACCINE - EMERGENCY USE AUTHORIZATION, MRNA, [id number](PF) 30 MCG/0.3 ML IM SUSP 06/26/2021 Family [...] 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 Not on file Not on file Last Filed Vital Signs Vital Sign Reading Time Taken Comments Blood Pressure 127/83 06/07/2024 1:12 PM DUST MILL OPERATOR Pulse 85 06/07/2024 1:12 PM DUST MILL OPERATOR Temperature 36.1 C (97 F) 06/07/2024 1:12 PM DUST MILL OPERATOR Respiratory Rate 16 06/07/2024 1:12 PM DUST MILL OPERATOR Oxygen Saturation 97% 06/07/2024 1:12 PM DUST MILL OPERATOR Inhaled Oxygen Concentration - - Weight 67.6 kg (149 lb) 06/07/2024 1:12 PM DUST MILL OPERATOR Height 162.6 cm (5' 4 ) 06/07/2024 1:12 PM DUST MILL OPERATOR Body Mass Index 25.58 06/07/2024 1:12 PM DUST MILL OPERATOR Plan of Treatment Upcoming Encounters Date Type Department Care Team (Late st Contact Info) Description 06/12/2025 1:20 PM DUST MILL OPERATOR Office Visit [facility] On[facility] and Hematology [facility] [address] [facility] [address] [place] [address] [place] [phone] [address] Health Maintenance Due Date Last [...] series) 2035 Medical Devices Implanted Type Area Grizzly Worker Device Identifier Shelf Expiration Date Model / Serial / Lot Clinical Data Specialist Clip Surgiclip Ii Carlos 11.5in [id number] - [id number] Implanted:Qty: 2 on 12/12/2020 by Miguelina Ro MD at [facility] Right: Breast [employer] - COVIDIEN 07/18/2025 [id number] / / Explanted Type Area Grizzly Worker Device Identifier Shelf Expiration Date Model / Serial / Lot Port Pwrprt Clearvue Isp 8fr Mri [id number] Implanted:Qty: 1 on 01/10/2021 by Steve Muhammad III, MD Explanted:Qty: 1 on 07/06/2022 by Ghassan Keith MD Port Left: Chest Wall CR BARD- [employer] 03/18/2022 [id number] / / [id number] Description:23 cm reg power port placed lt [...] PRIME THERAPEUT[employer] Commercial BLUE PREFERRED Care Teams Construction Site Crossing Guard Relationship Specialty Start Date End Date Stefano Mosquera MD [address] [place] [phone] PCP - General Family Practice 03/24/23
--- OUTSIDE RECORDS SUMMARY | 2024-11-27 12:20 | XMS_ITS ---
Author Organization Darin Locke [facility] Address [address] [place] [address] Care Team Providers Care Whipped Topping Finisher Name Role Phone Stefano Mosquera MD Primary Care Provider [phone] Active Problems Problem Noted Date Diagnosed Date Vitamin D deficiency 11/22/2020 Malignant neoplasm of centra l portion of right breast in female, estrogen receptor positive 10/17/2020 Cancer Staging:Clinical stage from 11/17/2020:Stage IA(cT1b, cN0, cM0, G3, ER+, MA+, HER2+) - Signed by Ximena Harkins MD [...]
[2024-11-27] MEDS: LACTATED RINGERS 1,000 ML 999 ML IV CONT (12:28)
[2024-11-27] MEDS: dilTIAZem HCl INJ 25 MG/5 ML VIAL 10 MG IV PUSH (12:29)
--- NOTE | 2024-11-27 12:32 | PC.NURSE ---
per pharmacy, pt needed 2 IV due to the medications ordered and not a clear answer on micromedex if they were compatible
--- NOTE | 2024-11-27 12:41 | ECG_ITS ---
Test Date: 2024-11-27 12:43:59 Measurements Intervals [place] Rate: 68 P: 0 AR: 0 QRS: 59 QRSD: 84 T: 39 QT: 369 QTc: 395 Interpretive Statements ATRIAL FIBRILLATION NONSPECIFIC ST AND T WAVE ABNORMALITY Compared to ECG 11/27/2024 11:18:01 RAPID VENTRICULAR RESPONSE NO LONGER PRESENT Electronically Signed On 11-28-2024 14:38:52 CDT by Kiran Jeronimo M.D.
[2024-11-27 12:51] LABS: Magnesium 2.1 mg/dL (1.6-2.3)
[2024-11-27 13:01] LABS: NT Pro B Type Natriuretic Pept 1400 pg/mL (19.9-100)
--- NOTE | 2024-11-27 13:30 | PC.NURSE ---
per EDP cardizem drip is not needed at this time
--- NOTE | 2024-11-27 13:33 | PM.IMHP ---
H&P: HPI History of Present Illness Date/Time: 11/27/24 13:33 Chief Complaint: Atrial fibrillation with RVR Narrative: 64-year-old female presents the hospital with AFib with RVR. Patient the plan with her primary care provider for she had EKG done that showed atrial fibrillation with rapid ventricular response rate of 153, and was sent to hospital for further evaluation. Patient's lab work in the ED CBC within normal limits, BMP within normal limits, troponin of 1.10, BNP of 1400. Patient was given diltiazem push followed by a diltiazem drip, heparin drip, aspirin, and Cardiology was consulted. Review of Systems Review of Systems: 12 systems were reviewed and are negative except for as per HPI. [facility] Past Medical History Medical History (Updated 11/27/24 @ 13:39 by Maryam Joe, CELL COVERER) Bipolar affective disorder, currently manic, mild Mild intermittent asthma without complication Surgical History Surgical History (Updated 03/15/24 @ 09:19 by Lindsay Hu CHLORINATION OPERATOR) H/O lumpectomy History of colonoscopy Family History Family History Other Cerebrovascular accident Hypertension Social History Social History (Updated 11/27/24 @ 08:29 by Luis Antonio Vanegas) Social History: 11/27/24 declined [facility] Smoking status: Never smoker Alcohol intake: current Drinks per week: 2 Alcohol use details: 2 month Substance use: never Substance use type: does not use Do You Feel Safe in your Home?: Yes Lack of Transportation: No Lack of Food: Never True Current Housing: I Have Housing Concerned About Future Housing: No Difficulty Paying Gas/Electric Bills: No Difficulty Paying for Meds: No Currently Unemployed: No Education: Don't Know Difficulty w/ Childcare or Family Care: No Living arrangements: with family Occupation/Education: occupation Gender identity (if verbalized by the patient): Female Spiritual care concerns: No Agree to blood products: Yes Meds Home Medications and Allergies Home Medications Medication Instructions Recorded Confirmed Type fexofenadine 60 mg-pseudoephedrine 1 tablet PO Q12H PRN Allergy 08/22/20 11/27/24 History ER 120 mg tablet,ext.release,12 hr Symptoms (Brie-D 12 Hour) hydrochlorothiazide 12.5 mg tablet See Rx Instructions .Route 05/12/21 11/27/24 Rx .COMPLEX #90 tabs anastrozole 1 mg tablet 1 mg PO DAILY 07/02/21 11/27/24 History ibuprofen 800 mg tablet 800 mg PO TID PRN pain #30 tabs 08/09/23 11/27/24 Rx Ventolin HFA 90 mcg/actuation 2 inh inhalation Q4H PRN shortness 03/15/24 11/27/24 Rx aerosol inhaler (albuterol sulfate) of breath or wheezing #18 grams alendronate 70 mg tablet 70 mg PO WEEKLY #1 tablet 09/13/24 11/27/24 Rx fluticasone fur. 100 mcg-umeclid 1 inh inhalation Q24H #60 ea 09/13/24 11/27/24 Rx 62.5 mcg-vilant 25 mcg inhalat.powder (Trelegy Ellipta) nitrofurantoin 100 mg PO Q12H 7 days #14 caps 11/24/24 11/27/24 Rx monohydrate/macrocrystals 100 mg capsule (Macrobid) Allergies Allergy/AdvReac Type Severity Reaction Status Date / Time latex Allergy Severe Rash Verified 11/27/24 11:39 Penicillins Allergy Unknown Unknown Verified 11/27/24 11:39 levofloxacin (From Levaquin) AdvReac muscle pain Verified 11/27/24 11:39 Vital Signs Vital Signs - 24 hr 11/27/24 11:10 11/27/24 11:38 11/27/24 11:38 Temperature 97.8 F Pulse Rate 158 H 141 H 144 H Respiratory Rate 16 20 Blood Pressure 115/89 122/82 Pulse Oximetry 97 98 Oxygen Delivery Room Air 11/27/24 12:01 11/27/24 12:01 11/27/24 12:02 Temperature Pulse Rate 154 H 148 H 155 H Respiratory Rate 15 Blood Pressure 123/95 H Pulse Oximetry 94 98 Oxygen Delivery 11/27/24 12:15 11/27/24 12:30 11/27/24 12:34 Temperature Pulse Rate 133 H 131 H 85 Respiratory Rate 14 25 H 17 Blood Pressure 103/75 Pulse Oximetry 98 98 97 Oxygen Delivery 11/27/24 13:08 Temperature Pulse Rate 89 Respiratory Rate 18 Blood Pressure 101/82 Pulse Oximetry 98 Oxygen Delivery Exam Narrative: General: well appearing, appears stated age. HEENT: normocephalic, atraumatic. Mucous membranes moist. EOMI, PERRLA, bilateral sclera anicteric, no conjunctival injection. Neck supple without JVD, lymphadenopathy, or bruit. Respiratory: clear to ascultation bilaterally. No rales/rhonic/wheezes. Cardiovascular: Regular rate and rhythm, normal S1-S2 upon ascultation. No murmurs, rubs, or clicks. PMI is nondisplaced, capillary refill less than 3 second. Abdomen: Soft, round, no pulsatile masses, nondistended and nontender. No rebound, no guarding. No CVA tenderness, no hepatosplenomegaly. Bowel sounds present to all four quadrants. No high pitch or tinkling sounds, resonant to percussion. Extremities: No cyanosis, clubbing, or edema present. Pulses are palpable 2/2. Active ROM to all four extremities. Neuro: Alert and orientated x 4. PERRLA. Cranial nerves 2-12 intact without focal deficit. Skin: Warm, dry, and intact, without rash, erythema, or lesion. Psych: pleasant, cooperative, normal speech, normal affect, no hallucinations, no dysarthia H&P: Results Labs Labs: Short CBC 11/27/24 Range/Units 11:41 WBC 10.0 (4.5-10.0) K/mm3 Hgb 13.6 (12.0-15.0) g/dL Hct 42.3 (37.0-47.0) % Plt Count 276 (150-375) k/mm3 BMP 11/27/24 11:41 Sodium 140 Potassium 4.1 Chloride 106 Carbon Dioxide 28 BUN 21 H Creatinine 0.71 Glucose 108 Calcium 8.8 Cardiac Enzymes 11/27/24 Range/Units 11:41 Troponin I 1.100 H* (0.000-0.034) ng/mL Liver Function 11/27/24 Range/Units 11:41 Total Bilirubin 0.6 (0.2-1.3) mg/dL AST 39 H (14-36) U/L ALT 26 (6-35) U/L Alkaline Phosphatase 68 (38-126) U/L Albumin 4.1 (3.5-5.1) g/dL Assessment and Plan Assessment and plan (1) Atrial fibrillation with RVR: Code(s): I48.91 - Unspecified atrial fibrillation Status: Acute Assessment and Plan: Cardiology consulted Diltiazem drip (2) NSTEMI (non-ST elevated myocardial infarction): Code(s): I21.4 - Non-ST elevation (NSTEMI) myocardial infarction Status: Acute Assessment and Plan: Cardiology consulted Heparin drip Trend troponins EKG for chest pain Echocardiogram pending NPO midnight for possible procedure (3) Essential hypertension: Code(s): I10 - Essential (primary) hypertension Status: Acute (4) Bipolar affective disorder, currently manic, mild: Code(s): F31.11 - Bipolar disorder, current episode manic without psychotic features, mild Status: Acute
--- NOTE | 2024-11-27 13:51 | PC.NURSE ---
patient given urine cup and towelette and advised we need a urine sample. US tech in room to do ultrasound at this time. patient states she will try to go after it is done.
[2024-11-27] MEDS: HEPARIN SOD/D5W 100 UNITS/ML 25,000 UNITS/250 ML BAG 8 UNITS IV CONT (14:15)
[2024-11-27] MEDS: HEPARIN SODIUM 5,000 UNITS/ML VIAL 4000 UNITS IV PUSH ×2 (14:15→20:57)
[2024-11-27] MEDS: dilTIAZem 100 MG/100 ML 100 MG/100 ML BAG IV CONT (14:25)
--- NOTE | 2024-11-27 14:25 | PC.NURSE ---
pt HR went up to 133 at this time. EDP says to start the dilt drip at this time and start it at 10
--- NOTE | 2024-11-27 14:32 | PC.NURSE ---
pt is aware she needs to give a urine sample but is unable to go. pt is A&OX4 and is dening a cath
--- NOTE | 2024-11-27 14:38 | ECG_ITS ---
Test Date: 2024-11-27 14:38:56 Measurements Intervals [place] Rate: 129 P: 133 MS: 208 QRS: 48 QRSD: 80 T: 0 QT: 272 QTc: 400 Interpretive Statements ATRIAL FIBRILLATION WITH RAPID VENTRICULAR RESPONSE NONSPECIFIC ST AND T-WAVE ABNORMALITY ABNORMAL RHYTHM ECG Compared to ECG 11/27/2024 12:43:59 RAPID VENTRICULAR RESPONSE NOW PRESENT Electronically Signed On 11-28-2024 14:47:59 CDT by Kiran Jeronimo M.D.
[2024-11-27] MEDS: dilTIAZem 100 MG/100 ML 100 MG/100 ML BAG 12.5 MG IV CONT (15:22)
--- NOTE | 2024-11-27 15:27 | PM.IMHP ---
H&P: HPI History of Present Illness Date/Time: 11/27/24 15:27 Chief Complaint: Palpitations Narrative: [age] year female past medical history of breast cancer on anastrozole presented to the ER on account of atrial fibrillation with rapid ventricular response from the PCP's office. She was in her usual state of health until 1:30 a.m. last night when she started having palpitations, initially 100 was the 130s this morning with to 160s to 170s which consulted% of PCPs office where EKG was obtained which showed atrial fibrillation with rapid ventricular response she was recommended to present to the ER for evaluation and care. Denies any chest pain, shortness a breath, diarrhea, abd pain, vomiting and focal deficits. ER eval HR 189, BP 90/56, labs K 4.1, Mg 2.1, TSH 1.24, CXR no acute changes, EKG showed Afib. Review of Systems Review of Systems: All Other systems reviewed and negative except noted in history above. [facility] Past Medical History Medical History (Updated 11/27/24 @ 13:39 by Maryam Joe APRN) Bipolar affective disorder, currently manic, mild Mild intermittent asthma without complication Surgical History Surgical History (Updated 03/15/24 @ 09:19 by Lindsay Hu [facility]) H/O lumpectomy History of colonoscopy Family History Family History Other Cerebrovascular accident Hypertension Social History Social History (Updated 11/27/24 @ 08:29 by Luis Antonio Vanegas) Social History: 11/27/24 declined [facility] Smoking status: Never smoker Alcohol intake: current Drinks per week: 2 Alcohol use details: 2 month Substance use: never Substance use type: does not use Do You Feel Safe in your Home?: Yes Lack of Transportation: No Lack of Food: Never True Current Housing: I Have Housing Concerned About Future Housing: No Difficulty Paying Gas/Electric Bills: No Difficulty Paying for Meds: No Currently Unemployed: No Education: Don't Know Difficulty w/ Childcare or Family Care: No Living arrangements: with family Occupation/Education: occupation Gender identity (if verbalized by the patient): Female Spiritual care concerns: No Agree to blood products: Yes Meds Home Medications and Allergies Home Medications Medication Instructions Recorded Confirmed Type fexofenadine 60 mg-pseudoephedrine 1 tablet PO Q12H PRN Allergy 08/22/20 11/27/24 History ER 120 mg tablet,ext.release,12 hr Symptoms (Brie-D 12 Hour) hydrochlorothiazide 12.5 mg tablet See Rx Instructions .Route 05/12/21 11/27/24 Rx .COMPLEX #90 tabs anastrozole 1 mg tablet 1 mg PO DAILY 07/02/21 11/27/24 History ibuprofen 800 mg tablet 800 mg PO TID PRN pain #30 tabs 08/09/23 11/27/24 Rx Ventolin HFA 90 mcg/actuation 2 inh inhalation Q4H PRN shortness 03/15/24 11/27/24 Rx aerosol inhaler (albuterol sulfate) of breath or wheezing #18 grams alendronate 70 mg tablet 70 mg PO WEEKLY #1 tablet 09/13/24 11/27/24 Rx fluticasone fur. 100 mcg-umeclid 1 inh inhalation Q24H #60 ea 09/13/24 11/27/24 Rx 62.5 mcg-vilant 25 mcg inhalat.powder (Trelegy Ellipta) nitrofurantoin 100 mg PO Q12H 7 days #14 caps 11/24/24 11/27/24 Rx monohydrate/macrocrystals 100 mg capsule (Macrobid) Allergies Allergy/AdvReac Type Severity Reaction Status Date / Time latex Allergy Severe Rash Verified 11/27/24 11:39 Penicillins Allergy Unknown Unknown Verified 11/27/24 11:39 levofloxacin (From Levaquin) AdvReac muscle pain Verified 11/27/24 11:39 Vital Signs Vital Signs - 24 hr 11/27/24 11:10 11/27/24 11:38 11/27/24 11:38 Temperature 97.8 F Pulse Rate 158 H 141 H 144 H Respiratory Rate 16 20 Blood Pressure 115/89 122/82 Pulse Oximetry 97 98 Oxygen Delivery Room Air 11/27/24 12:01 11/27/24 12:01 11/27/24 12:02 Temperature Pulse Rate 154 H 148 H 155 H Respiratory Rate 15 Blood Pressure 123/95 H Pulse Oximetry 94 98 Oxygen Delivery 11/27/24 12:15 11/27/24 12:30 11/27/24 12:34 Temperature Pulse Rate 133 H 131 H 85 Respiratory Rate 14 25 H 17 Blood Pressure 103/75 Pulse Oximetry 98 98 97 Oxygen Delivery 11/27/24 13:08 11/27/24 14:01 11/27/24 14:16 Temperature Pulse Rate 89 84 86 Respiratory Rate 18 16 14 Blood Pressure 101/82 108/62 123/77 Pulse Oximetry 98 99 99 Oxygen Delivery 11/27/24 14:25 11/27/24 14:26 11/27/24 14:31 Temperature Pulse Rate 135 H 135 H 140 H Respiratory Rate 20 Blood Pressure 123/77 127/90 Pulse Oximetry 100 Oxygen Delivery 11/27/24 14:43 11/27/24 15:22 Temperature 97.8 F Pulse Rate 130 H 81 Respiratory Rate Blood Pressure 127/90 117/66 Pulse Oximetry 99 Oxygen Delivery Exam Narrative: General: alert and comfortable Eyes: EOMI, PERRLA ENNT External ears normal, Neck is supple, no masses, Respiratory systems: Clear to auscultation Cardiovascular S1, S2, normal rhythm, no murmur, rub, or gallop; no thrill or palpable murmurs on palpation. Gastrointestinal: soft, non-tender, and non-distended abdomen with no masses; BS present Skin: no rash, lesions, ulcerations, subcutaneous nodules or induration Musculoskeletal: no abnormality and no tenderness, normal ROM Neurologic: Alert and oriented x3, non focal Mental Status Exam: normal affect H&P: Results Labs Labs: Short CBC 11/27/24 Range/Units 11:41 WBC 10.0 (4.5-10.0) K/mm3 Hgb 13.6 (12.0-15.0) g/dL Hct 42.3 (37.0-47.0) % Plt Count 276 (150-375) k/mm3 [facility] 11/27/24 11:41 Sodium 140 Potassium 4.1 Chloride 106 Carbon Dioxide 28 BUN 21 H Creatinine 0.71 Glucose 108 Calcium 8.8 Cardiac Enzymes 11/27/24 11/27/24 Range/Units 11:41 14:46 Troponin I 1.100 H* 2.220 H* D (0.000-0.034) ng/mL Liver Function 11/27/24 Range/Units 11:41 Total Bilirubin 0.6 (0.2-1.3) mg/dL AST 39 H (14-36) U/L ALT 26 (6-35) U/L Alkaline Phosphatase 68 (38-126) U/L Albumin 4.1 (3.5-5.1) g/dL Assessment and Plan Assessment and plan (1) Atrial fibrillation with RVR: Code(s): I48.91 - Unspecified atrial fibrillation Status: Acute Plan Atrial fibrillation with Rapid ventricular response Presented to the ER from PCP's office for Afib RVR EKG reviewed, CXR no acute changes K 4.1, Mg 2.1, TSH wnl ECHO pending Metoprolol 12.5mg bid, Cardizem infusion Cardiology consulted and pending eval Elevated troponin Troponin 1.1 up to 2.22 ACS vs Tachycardia Recent UTI patient diagnosed UTI recently and started on Nitrofurantoin Continue Nitrofurantoin DVT prophylaxis on Sq Lovenox Full code Surrogate decision maker: Ad Zapata Hospitalist MIPS Advance Care Plan I have confirmed that the patient's Advanced Care Plan is present, code status is documented, or surrogate decision maker is listed in patient medical record.: Yes Medication Reconciliation I have utilized all available resources to obtain, update and review the patients current medications (includes all prescriptions, OTC, herbals, cannabis, and nutritional supplements).: Yes
[2024-11-27 15:44] LABS: Add Urine Microscopic? YES; Appearance Urine Clear (Clear); Bacteria Urine None Seen /hpf; Bilirubin Urine Negative (Negative); Blood Urine Negative (Negative); Color Urine Yellow (Yellow); Glucose Urine UA Negative (Negative); Ketones Urine 1+ mg/dL (Negative); Leukocyte Esterase Ur Trace LEU/UL (Negative); Nitrate Urine Negative (Negative); Non Pathogenic Casts 0-2; Protein Urine Negative (Negative); RBC Urine 0-2 /hpf (0-2); Specific Grav Ur 1.011 (1.001-1.035); Squamous Epithelial Cell Urine None Seen /hpf (Few); Urobilinogen Urine 0.2 mg/dL (<2.0); WBC Urine 0-5 /hpf (0-3)
--- NOTE | 2024-11-27 16:03 | ADMGEN ---
This patient, Carley Zapata, was admitted to IMU Room 210-01. Patient/family oriented to hospital policies and general routines including ID bracelet, bed and alarms, visiting hours, pain management, procedures, bathroom and other care routines, personal items, smoking policy, room service/diet, and visiting hours. Information on how to activate the Rapid Response Team has been discussed. Patient/Family are encouraged to report perceived risks to care and to ask questions if they do not understand what they are told or what they should do.
[2024-11-27] MEDS: METOPROLOL TARTRATE 12.5 MG TABLET PO ×2 (18:12→20:56)
--- NOTE | 2024-11-27 19:15 | PM.CNCAR ---
Assessment and Plan Assessment and plan (1) Atrial fibrillation with RVR: Code(s): I48.91 - Unspecified atrial fibrillation Status: Acute Plan Atrial fibrillation-she has spontaneously converted back to sinus rhythm her echocardiogram demonstrated ejection fraction was preserved The left ventricle is normal in size and systolic function. The left ventricular ejection fraction is visually estimated to be 50-55%.she has no antecedent history of heart disease no history of thyroid disorder currently she is off of diltiazem would recommend adding Lopressor 25 mg b.i.d. as a beta-alejandro to suppress any tachyarrhythmia Elevated troponin-could very well be related to her rapid atrial fibrillation she had on presentation she has never had a cardiac workup done uncertain whether or not this is truly ACS or type 2 [place] even though the troponin is noted to be quite elevated. She has no chest pain symptoms. Present may be feasible to do a Lexiscan stress test on her to evaluate ischemic burden. Especially with her being asymptomatic and her EKG not suggestive of ACS however in review of atrial fibrillation EKG with a rate of 156 beats per minute there was ST segment depression that was noted this was with her heart rate being well over 85% of MPHR Currently recommend for her to remain NPO after midnight as she may potentially be a candidate for a Lexiscan stress test if her troponins trend downward. If her troponins persistently are elevated or continue to rise consider scheduling her for a diagnostic heart catheterization discussed with her nurse to with these plans as well as on the phone with her daughter Noni was called in and discussed over the telephone History of Present Illness History of Present Illness Consult date/time: 11/27/24 19:15 Reason For Visit: Elevated troponin, AFib with RVR Narrative: Patient is a 64-year-old female who has no antecedent history of heart disease who presents here to the hospital with palpitations randomly starting at nighttime and was identified as having rapid atrial fibrillation. The patient denies any prior history of chest pain nausea vomiting shortness of breath pounding palpitations or loss of consciousness. Recently she has had the of her spouse over the past month and she has been working out the paperwork her daughter was recently here visiting this past week. She spontaneously developed palpitations and was able to get up and around otherwise at home and then presented to the hospital. She denies any excessive caffeine intake drinks 1 cup coffee a day family history is negative for any cardiac issues she denies a history of hypertension diabetes prior [place] or CVA currently she has converted into sinus rhythm was given IV diltiazem is currently on heparin drip she has a past medical history significant for asthma has not had any recent asthma exacerbation or upper respiratory infection [facility] Past Medical History Medical History (Updated 11/27/24 @ 13:39 by Maryam Joe, ARRT TECHNOLOGIST) Bipolar affective disorder, currently manic, mild Mild intermittent asthma without complication Surgical History Surgical History (Updated 03/15/24 @ 09:19 by Lindsay Hu CLASSROOM TEACHER) H/O lumpectomy History of colonoscopy Family History Family History Other Cerebrovascular accident Hypertension Social History Social History (Updated 11/27/24 @ 08:29 by Luis Antonio Vanegas) Social History: 11/27/24 declined [facility] Smoking status: Never smoker Alcohol intake: current Drinks per week: 2 Alcohol use details: 2 month Substance use: never Substance use type: does not use Do You Feel Safe in your Home?: Yes Lack of Transportation: No Lack of Food: Never True Current Housing: I Have Housing Concerned About Future Housing: No Difficulty Paying Gas/Electric Bills: No Difficulty Paying for Meds: No Currently Unemployed: No Education: Don't Know Difficulty w/ Childcare or Family Care: No Living arrangements: with family Occupation/Education: occupation Gender identity (if verbalized by the patient): Female Spiritual care concerns: No Agree to blood products: Yes Meds Home Medications and Allergies Home Medications Medication Instructions Recorded Confirmed Type fexofenadine 60 mg-pseudoephedrine 1 tablet PO Q12H PRN Allergy 08/22/20 11/27/24 History ER 120 mg tablet,ext.release,12 hr Symptoms (Brie-D 12 Hour) anastrozole 1 mg tablet 1 mg PO DAILY 07/02/21 11/27/24 History Ventolin HFA 90 mcg/actuation 2 inh inhalation Q4H PRN shortness 03/15/24 11/27/24 Rx aerosol inhaler (albuterol sulfate) of breath or wheezing #18 grams alendronate 70 mg tablet 70 mg PO WEEKLY #1 tablet 09/13/24 11/27/24 Rx fluticasone fur. 100 mcg-umeclid 1 inh inhalation Q24H #60 ea 09/13/24 11/27/24 Rx 62.5 mcg-vilant 25 mcg inhalat.powder (Trelegy Ellipta) nitrofurantoin 100 mg PO Q12H 7 days #14 caps 11/24/24 11/27/24 Rx monohydrate/macrocrystals 100 mg capsule (Macrobid) cholecalciferol (vitamin D3) 125 5,000 unit PO ONCE 11/27/24 11/27/24 History mcg (5,000 unit) capsule Allergies Allergy/AdvReac Type Severity Reaction Status Date / Time latex Allergy Severe Rash Verified 11/27/24 11:39 Penicillins Allergy Unknown Unknown Verified 11/27/24 11:39 levofloxacin (From Levaquin) AdvReac muscle pain Verified 11/27/24 11:39 Vital Signs Vital Signs - 24 hr 11/27/24 11:10 11/27/24 11:38 11/27/24 11:38 Temperature 36.6 C Pulse Rate 158 H 141 H 144 H Respiratory Rate 16 20 Blood Pressure 115/89 122/82 Pulse Oximetry 97 98 Oxygen Delivery Room Air 11/27/24 12:01 11/27/24 12:01 11/27/24 12:02 Temperature Pulse Rate 154 H 148 H 155 H Respiratory Rate 15 Blood Pressure 123/95 H Pulse Oximetry 94 98 Oxygen Delivery 11/27/24 12:15 11/27/24 12:30 11/27/24 12:34 Temperature Pulse Rate 133 H 131 H 85 Respiratory Rate 14 25 H 17 Blood Pressure 103/75 Pulse Oximetry 98 98 97 Oxygen Delivery 11/27/24 13:08 11/27/24 14:01 11/27/24 14:16 Temperature Pulse Rate 89 84 86 Respiratory Rate 18 16 14 Blood Pressure 101/82 108/62 123/77 Pulse Oximetry 98 99 99 Oxygen Delivery 11/27/24 14:25 11/27/24 14:26 11/27/24 14:31 Temperature Pulse Rate 135 H 135 H 140 H Respiratory Rate 20 Blood Pressure 123/77 127/90 Pulse Oximetry 100 Oxygen Delivery 11/27/24 14:43 11/27/24 15:22 11/27/24 15:22 Temperature 36.6 C Pulse Rate 130 H 81 90 Respiratory Rate Blood Pressure 127/90 117/66 117/66 Pulse Oximetry 99 Oxygen Delivery 11/27/24 16:00 11/27/24 18:12 11/27/24 18:14 Temperature Pulse Rate 81 81 85 Respiratory Rate 20 Blood Pressure Pulse Oximetry 99 Oxygen Delivery Room Air Exam Const: General: healthy appearing, comfortable and no acute distress HENMT: Head: normal to inspection, normocephalic and atraumatic Neck: Neck: normal visual inspection and no JVD Resp: Effort & Inspection: normal respiratory effort and able to speak in complete sentences Cardio: Rate: regular rate Rhythm: regular rhythm Heart sounds: S1 normal heart sound present and S2 normal heart sound present Extrem: General: no pedal edema Results Labs and Meds 11/27/24 11:41 11/27/24 11:41 Lab results: Cardiac Enzymes 11/27/24 11/27/24 11/27/24 Range/Units 11:41 14:46 17:00 AST 39 H (14-36) U/L Troponin I 1.100 H* 2.220 H* D 2.410 H* (0.000-0.034) ng/mL Coagulation 11/27/24 Range/Units 11:41 PT 13.1 (11.1-14.7) Seconds APTT 22.8 (22.3-36.8) Seconds CBC 11/27/24 Range/Units 11:41 WBC 10.0 (4.5-10.0) K/mm3 RBC 4.58 (4.2-5.4) M/mm3 Hgb 13.6 (12.0-15.0) g/dL Hct 42.3 (37.0-47.0) % Plt Count 276 (150-375) k/mm3 Lymph # (Auto) 1.26 (0.9-3.2) K/mm3 [place] # (Auto) 0.8 H (0.1-0.6) K/mm3 Eos # (Auto) 0.1 (0-0.3) K/mm3 Baso # (Auto) 0.1 (0.0-0.1) K/mm3 Comprehensive Metabolic Panel 11/27/24 Range/Units 11:41 Sodium 140 (137-145) mmol/L Potassium 4.1 (3.4-5.0) mmol/L Chloride 106 (98-107) mmol/L Carbon Dioxide 28 (22-30) mmol/L BUN 21 H (7-17) mg/dL Creatinine 0.71 (0.7-1.0) mg/dL Glucose 108 (65-110) mg/dL Calcium 8.8 (8.4-10.2) mg/dL AST 39 H (14-36) U/L ALT 26 (6-35) U/L Alkaline Phosphatase 68 (38-126) U/L Total Protein 7.0 (6.3-8.2) g/dL Albumin 4.1 (3.5-5.1) g/dL Intake and Output 11/27/24 11/27/24 11/27/24 07:59 15:59 23:59 Intake Total 1002.9 632.8 Balance 1002.9 632.8 Intake: IV 1002.9 35.8 Lactated Ringers 1,000 ml @ 999 1000 mls/hr IV CONT .Q1H1M STA Rx#: [id number] dilTIAZem 100 MG/100 ML 100 mg 2.9 35.8 In 100 ml @ 5 MG/HR 5 mls/hr IV CONT .Q20H [facility] Rx#:[id number] Oral 597 Other: # Unmeasured Voids 1 Patient Weight 11/27/24 23:59 Weight 65.1 kg Imaging and Cardiology Echo: report reviewed (Summary 1. Complete two-dimensional, color flow and Doppler transthoracic echocardiogram is performed. 2. There is normal biventricular size and systolic function. 3. There are no significant valvular abnormalities. 4. Dilated inferior vena cava with <50% collapse upon inspiration consistent)
[2024-11-27 20:48] LABS: INR 1.1; Partial Thromboplastin Time 50.9 Seconds (22.3-36.8)
[2024-11-27] MEDS: METOPROLOL TARTRATE 25 MG TABLET PO (20:56)
[2024-11-28] VITALS (14 sets, daily range): BP systolic 97–108; BP diastolic 49–56; PULSE 58–89; RESP 18; TEMP 36.7–36.8; O2SAT 94–100
--- NOTE | 2024-11-28 | EST_ITS ---
Patient Info Name: Carley Zapata Age: 64 years : 1960 Gender: Female Ht: 64 in Wt: 143 lbs BSA: 1.72 m2 Exam Date: 11/28/2024 11:09 AM Patient Status: O Admit Date: 11/27/2024 Exam Type: CA stress bruno w NM Study Info A regadenoson stress test was performed. Staff Referring Physician: Jose Carlos Angelo DO Attending Provider: Shmuel Lomas Exercise Technologist: Dahiana Valderrama Exercise Physician: Jose Carlos Low Summary 1. 1. Negative lexiscan stress test for ischemic ST changes by ECG criteria. 2. 2. Stable hemodynamics throughout the test. 3. 3. Nuclear scan to follow and will be reported separately. Please correlate with it. Protocol: Lexiscan Stress ECG Details Stage: REST Duration (min): 1 min : 7 sec HR (bpm): 66 SBP (mmHg): 133 DBP (mmHg): 66 Stage: REST Duration (min): 3 min : 14 sec HR (bpm): 67 SBP (mmHg): 133 DBP (mmHg): 66 Stage: STAGE 1 Duration (min): 1 min : 0 sec HR (bpm): 78 SBP (mmHg): 133 DBP (mmHg): 66 Stage: RECOVERY Duration (min): 1 min : 0 sec HR (bpm): 89 SBP (mmHg): 133 DBP (mmHg): 66 Stage: RECOVERY Duration (min): 2 min : 0 sec HR (bpm): 85 SBP (mmHg): 118 DBP (mmHg): 68 Stage: RECOVERY Duration (min): 3 min : 0 sec HR (bpm): 84 SBP (mmHg): 120 DBP (mmHg): 68 Stage: RECOVERY Duration (min): 3 min : 4 sec HR (bpm): 82 SBP (mmHg): 120 DBP (mmHg): 68 Rest HR: 67 bpm Peak HR: 90 bpm Rest Sys BP: 133 mmHg Peak Sys BP: 120 mmHg Max Pred HR: 156 bpm % Max Pred HR: 58 % Target HR: 133 bpm Max RPP: 10,800 bpm*mmHg Termination Reason: Completed protocol Cardiac Symptoms: Shortness of breath Total Time: 1 min : 0 sec Rest Calderon BP: 66 mmHg Peak Calderon BP: 68 mmHg Total Dose: 0.4 mg Resting ECG Sinus rhythm. Stress ECG No ST changes. Arrhythmias None. Report Signatures
[2024-11-28 03:14] LABS: Basophils Absolute Auto 0.1 K/mm3 (0.0-0.1); Basophils Percent Auto 0.9 % (0.2-1.2); Eosinophils Absolute Auto 0.3 K/mm3 (0-0.3); Eosinophils Percent Auto 4.5 % (0-4.4); Hematocrit 36.8 % (37.0-47.0); Hemoglobin 11.4 g/dL (12.0-15.0); Immature Granulocyte Absolute 0.03 K/mm3 (0.00-0.031); Immature Granulocyte Percent A 0.4 % (0-0.5); Lymphocytes Absolute Auto 1.75 K/mm3 (0.9-3.2); Lymphocytes Percent Auto 22.9 % (18.3-44.2); Mean Corpuscular Hemoglobin 29.5 pg (26-34); Mean Corpuscular Volume 95.3 fl (80-100); Mean Platelet Volume 9.8 fl (7.4-10.4); Monocytes Absolute Auto 0.6 K/mm3 (0.1-0.6); Neutrophils Absolute Auto 4.8 K/mm3 (1.3-6.7); Neutrophils Percent Auto 63.3 % (45.5-73.1); Platelet Count Result 223 k/mm3 (150-375); Red Blood Count 3.86 M/mm3 (4.2-5.4); Red Cell Distribution Width 14.1 % (11.5-14.5); White Blood Count 7.6 K/mm3 (4.5-10.0)
[2024-11-28 03:37] LABS: Lactic Acid Reflex 0.6 mmol/L (0.7-2.0)
[2024-11-28 03:40] LABS: Alanine Aminotransferase 34 U/L (6-35); Albumin Level 3.3 g/dL (3.5-5.1); Alkaline Phosphatase 64 U/L (38-126); Anion Gap 3 mmol/L (4-12); Aspartate Amino Transferase 45 U/L (14-36); Bilirubin,Total 0.3 mg/dL (0.2-1.3); Blood Urea Nitrogen 15 mg/dL (7-17); Calcium 8.4 mg/dL (8.4-10.2); Carbon Dioxide 26 mmol/L (22-30); Chloride 108 mmol/L (98-107); Estimated CRCL calculation 75 ml/min; Estimated Glomerular Filt Rate > 60; Glucose 100 mg/dL (65-110); Magnesium 2.2 mg/dL (1.6-2.3); Potassium 3.9 mmol/L (3.4-5.0); Sodium 137 mmol/L (137-145)
[2024-11-28 03:45] LABS: Partial Thromboplastin Time 139.1 Seconds (22.3-36.8)
--- NOTE | 2024-11-28 08:10 | P.PNCA_ITS ---
Progress Note: A&P Assessment and Plan (1) PAF (paroxysmal atrial fibrillation): Code(s): I48.0 - Paroxysmal atrial fibrillation Status: Acute Assessment and Plan: Spontaneously returned on Sinus rhythm on Diltiazem which was stopped. [id number] 1, almost 2 (age). Start Metoprolol Tarate 25 mg PO BID to prevent recurrence. Stop heparin drip. Start Aspirin 325 mg daily. (2) Elevated troponin: Code(s): R79.89 - Other specified abnormal findings of blood chemistry Status: Acute Assessment and Plan: Troponin peaked at 2.4, down to 1.48 now. Probably related to rapid atrial fibrillation for many hours. Doubt ACS. 11/27/24 Echo: EF 50-55%, trace MR, mild TR. Obtain m-spatialiscan myoview stress test. Subjective Date/time seen: 11/28/24 08:10 Interval history: Denies chest pain or sob. Her last month. Exam Const: General: cooperative, healthy appearing and comfortable Resp: Auscultation: clear to auscultation bilaterally, no crackles, no rales, no rhonchi and no wheezes Cardio: Rate: regular rate Rhythm: regular rhythm Heart sounds: no murm urs Peripheral pulses: dorsalis pedis present GI: GI Palp: No abdominal tenderness and Yes Soft to palpation Neuro: General: oriented to person, oriented to place and oriented to time Extrem: Right lower extremity: no edema Left lower extremity: no edema Objective Data Vital Signs Vital Signs: Vital Signs - 24 hr 11/27/24 11:10 11/27/24 11:38 11/27/24 11:38 Temperature 97.8 F Pulse Rate 158 H 141 H 144 H Respiratory Rate 16 20 Blood Pressure 115/89 122/82 Pulse Oximetry 97 98 Oxygen Delivery Room Air 11/27/24 12:01 11/27/24 12:01 11/27/24 12:02 Temperature Pulse Rate 154 H 148 H 155 H Respiratory Rate 15 Blood Pressure 123/95 H Pulse Oximetry 94 98 Oxygen Delivery 11/27/24 12:15 11/27/24 12:30 11/27/24 12:34 Temperature Pulse Rate 133 H 131 H 85 Respiratory Rate 14 25 H 17 Blood Pressure 103/75 Pulse Oximetry 98 98 97 Oxygen Delivery 11/27/24 13:08 11/27/24 14:01 11/27/24 14:16 Temperature Pulse Rate 89 84 86 Respiratory Rate 18 16 14 Blood Pressure 101/82 108/62 123/77 Pulse Oximetry 98 99 99 Oxygen Delivery 11/27/24 14:25 11/27/24 14:26 11/27/24 14:31 Temperature Pulse Rate 135 H 135 H 140 H Respiratory Rate 20 Blood Pressure 123/77 127/90 Pulse Oximetry 100 Oxygen Delivery 11/27/24 14:43 11/27/24 15:22 11/27/24 15:22 Temperature 97.8 F Pulse Rate 130 H 81 90 Respiratory Rate Blood Pressure 127/90 117/66 117/66 Pulse Oximetry 99 Oxygen Delivery 11/27/24 16:00 11/27/24 16:00 11/27/24 18:00 Temperature Pulse Rate 81 84 74 Respiratory Rate 20 Blood Pressure Pulse Oximetry 99 Oxygen Delivery Room Air 11/27/24 18:12 11/27/24 18:14 11/27/24 20:00 Temperature Pulse Rate 81 85 71 Respiratory Rate Blood Pressure Pulse Oximetry Oxygen Delivery 11/27/24 20:38 11/27/24 20:40 11/27/24 20:56 Temperature 98.3 F Pulse Rate 75 75 74 Respiratory Rate 18 18 Blood Pressure 94/52 L Pulse Oximetry 97 97 Oxygen Delivery Room Air 11/27/24 20:56 11/27/24 21:57 11/27/24 22:52 Temperature 98.1 F Pulse Rate 74 68 72 Respiratory Rate 18 Blood Pressure 98/58 L Pulse Oximetry 96 Oxygen Delivery 11/27/24 23:47 11/28/24 00:00 11/28/24 02:00 Temperature Pulse Rate 71 77 66 Respiratory Rate 18 Blood Pressure Pulse Oximetry 96 Oxygen Delivery Room Air 11/28/24 03:42 11/28/24 03:46 11/28/24 04:00 Temperature 98.1 F Pulse Rate 66 62 59 L Respiratory Rate 18 18 Blood Pressure 97/49 L Pulse Oximetry 96 97 Oxygen Delivery Room Air 11/28/24 06:00 11/28/24 07:53 Temperature 98.1 F Pulse Rate 58 L 67 Respiratory Rate 18 Blood Pressure 108/52 L Pulse Oximetry 97 Oxygen Delivery Intake/Output Intake/Output: Intake & Output 11/25/24 11/26/24 11/27/24 11/28/24 23:59 23:59 23:59 23:59 Intake Total 1700.9 624.8 Balance 1700.9 624.8 Meds/Results Medications: Active Medications Generic Name Dose Route Start Last Admin Trade Name Freq PRN Reason Stop Dose Admin Acetaminophen 650 mg 11/27/24 13:41 Acetaminophen 325 Mg Tablet PO Q4H PRN Mild Pain (1-3) or Fever Aspirin 81 mg 11/28/24 08:00 Aspirin 81 Mg Chewable Tablet PO DAILY@0800 [facility] Atorvastatin Calcium 40 mg 11/27/24 21:00 11/27/24 20:56 Atorvastatin 40 Mg Tablet PO Not Given HS ADONIS Heparin Sodium (Porcine) 4,000 units 11/27/24 13:14 11/27/24 20:57 Heparin Sodium 5,000 Units/Ml Vial IV PUSH 4,000 units PRN PRN Administration aPTT less than 55 seconds Heparin Sodium (Porcine) 2,500 units 11/27/24 13:14 Heparin Sodium 5,000 Units/Ml Vial IV PUSH PRN PRN aPTT 55 - 70 seconds Heparin Sodium/Dextrose 25,000 units in 250 mls @ 9 mls/hr 11/27/24 13:15 11/28/24 06:00 Heparin Sodium/D5w 100 Units/Ml IV CONT 900 units/hr .Q24H ADONIS 9 mls/hr Titration Protocol 900 UNITS/HR Metoprolol Tartrate 25 mg 11/27/24 21:00 11/27/24 20:56 Metoprolol Tartrate 25 Mg Tablet PO 25 mg Q12HR ADONIS Administration Morphine Sulfate 2 mg 11/27/24 13:41 Morphine Sulfate (*Crx) 2 Mg/Ml Inj IV PUSH Q4H PRN Pain Rated 7-10 Nitrofurantoin Macrocrystals 100 mg 11/27/24 21:00 11/27/24 20:57 Nitrofurantoin Monohyd Macrocr 100 Mg Cap PO Not Given Q12HR ADONIS Perflutren Lipid Microsphere 0 ml 11/27/24 13:16 Perflutren Lipid Microspheres 1.5 Ml Vial Diluted To 10 Ml Total Volume IV PUSH 11/30/24 13:18 ONCE PRN adequate visualization Protocol Radiology Results: ITS Impressions Chest X-Ray 11/27/24 11:37 IMPRESSION: 1. No acute cardiopulmonary disease. Labs Labs: Laboratory Results - last 24 hr 11/27/24 11/27/24 11/27/24 11:41 14:46 15:26 WBC 10.0 RBC 4.58 Hgb 13.6 Hct 42.3 MCV 92.4 MCH 29.7 MCHC 32.2 RDW 13.8 Plt Count 276 MPV 9.7 Immature Gran % (Auto) 0.4 Neut % (Auto) 77.0 H Lymph % (Auto) 12.6 L [place] % (Auto) 8.3 Eos % (Auto) 1.0 Baso % (Auto) 0.7 Lymph # (Auto) 1.26 [place] # (Auto) 0.8 H Eos # (Auto) 0.1 Baso # (Auto) 0.1 Abs Immat Gran (auto) 0.04 H Absolute Neuts (auto) 7.7 H Absolute Nucleated RBC 0.000 Nucleated RBC % 0.0 PT 13.1 INR 1.0 APTT 22.8 Sodium 140 Potassium 4.1 Chloride 106 Carbon Dioxide 28 Anion Gap 6 BUN 21 H Creatinine 0.71 Estim Creat Clear Calc 60 Estimated GFR > 60 Glucose 108 Lactic Acid Calcium 8.8 Magnesium 2.1 Total Bilirubin 0.6 AST 39 H ALT 26 Alkaline Phosphatase 68 Troponin I 1.100 H* 2.220 H* D NT-Pro-B Natriuret Pep 1400 H Total Protein 7.0 Albumin 4.1 Lipase 88 TSH (Reflex) 1.240 Urine Color Yellow Urine Appearance Clear Urine pH 7.0 Ur Specific [place] 1.011 Urine Protein Negative Urine Glucose (UA) Negative Urine Ketones 1+ H Ur Blood (Man) Negative Urine Nitrate Negative Urine Bilirubin Negative Urine Urobilinogen 0.2 Leukocyte Esterase Rfl Trace H Urine RBC 0-2 Urine WBC 0-5 Ur Squamous Epith Cells None seen Urine Bacteria None seen Urine Casts 0-2 11/27/24 11/27/24 11/27/24 17:00 20:01 20:01 WBC RBC Hgb Hct MCV MCH MCHC RDW Plt Count MPV Immature Gran % (Auto) Neut % (Auto) Lymph % (Auto) [place] % (Auto) Eos % (Auto) Baso % (Auto) Lymph # (Auto) [place] # (Auto) Eos # (Auto) Baso # (Auto) Abs Immat Gran (auto) Absolute Neuts (auto) Absolute Nucleated RBC Nucleated RBC % PT 14.0 INR 1.1 APTT 50.9 H Cancelled Sodium Potassium Chloride Carbon Dioxide Anion Gap BUN Creatinine Estim Creat Clear Calc Estimated GFR Glucose Lactic Acid Calcium Magnesium Total Bilirubin AST ALT Alkaline Phosphatase Troponin I 2.410 H* 2.110 H* NT-Pro-B Natriuret Pep Total Protein Albumin Lipase TSH (Reflex) Urine Color Urine Appearance Urine pH Ur Specific [place] Urine Protein Urine Glucose (UA) Urine Ketones Ur Blood (Man) Urine Nitrate Urine Bilirubin Urine Urobilinogen Leukocyte Esterase Rfl Urine RBC Urine WBC Ur Squamous Epith Cells Urine Bacteria Urine Casts 11/27/24 11/28/24 23:08 03:07 WBC 7.6 RBC 3.86 L Hgb 11.4 L Hct 36.8 L MCV 95.3 MCH 29.5 MCHC 31.0 L RDW 14.1 Plt Count 223 MPV 9.8 Immature Gran % (Auto) 0.4 Neut % (Auto) 63.3 Lymph % (Auto) 22.9 [place] % (Auto) 8.0 Eos % (Auto) 4.5 H Baso % (Auto) 0.9 Lymph # (Auto) 1.75 [place] # (Auto) 0.6 Eos # (Auto) 0.3 Baso # (Auto) 0.1 Abs Immat Gran (auto) 0.03 Absolute Neuts (auto) 4.8 Absolute Nucleated RBC 0.000 Nucleated RBC % 0.0 PT INR APTT 139.1 H Sodium 137 Potassium 3.9 Chloride 108 H Carbon Dioxide 26 Anion Gap 3 L BUN 15 D Creatinine 0.55 L Estim Creat Clear Calc 75 Estimated GFR > 60 Glucose 100 Lactic Acid 0.6 L Calcium 8.4 Magnesium 2.2 Total Bilirubin 0.3 AST 45 H ALT 34 Alkaline Phosphatase 64 Troponin I 2.170 H* 1.480 H* D NT-Pro-B Natriuret Pep Total Protein 6.0 L Albumin 3.3 L Lipase TSH (Reflex) Urine Color Urine Appearance Urine pH Ur Specific [place] Urine Protein Urine Glucose (UA) Urine Ketones Ur Blood (Man) Urine Nitrate Urine Bilirubin Urine Urobilinogen Leukocyte Esterase Rfl Urine RBC Urine WBC Ur Squamous Epith Cells Urine Bacteria Urine Casts
[2024-11-28] MEDS: METOPROLOL TARTRATE 25 MG TABLET PO (08:31)
[2024-11-28] MEDS: ASPIRIN 325 MG ENTERIC TABLET PO (08:32)
--- NOTE | 2024-11-28 13:23 | PC.NURSE ---
On 11/28/24, the student, [Lydia Blanchard], provided care and completed [facility] documentation on this patient. I have reviewed the student's documentation and agree with the findings.
--- NOTE | 2024-11-28 16:20 | PM.DS ---
DS: Admitting Diagnosis Discharge Date 11/28/2024 Admitting Diagnosis Palpitations DS: Discharge Diagnosis Discharge Diagnosis (1) PAF (paroxysmal atrial fibrillation): Code(s): I48.0 - Paroxysmal atrial fibrillation Status: Acute DS: Summary Hospital Course Hospital Course: [age] year female past medical history of breast cancer on anastrozole presented to the ER on account of atrial fibrillation with rapid ventricular response from the PCP's office. She was in her usual state of health until 1:30 a.m. last night when she started having palpitations, initially 100 was the 130s this morning with to 160s to 170s which consulted% of PCPs office where EKG was obtained which showed atrial fibrillation with rapid ventricular response she was recommended to present to the ER for evaluation and care. Denies any chest pain, shortness a breath, diarrhea, abd pain, vomiting and focal deficits. ER eval HR 189, BP 90/56, labs K 4.1, Mg 2.1, TSH 1.24, CXR no acute changes, EKG showed Afib. Patient spontaneously converted to NSR, cardiology evaluated and recommended Metoprolol 25mg bid and Aspirin 325mg daily. [id number] 1. Elevated Troponin likely from atrial fibrillation, Troponin 2.4, and trending 1.48 , ECHO EF 50-55%. Cardiology recommended continuing Metoprolol 25mg bid, Aspirin 325mg, and Lipitor 40mg. discharged as recommended. F/u with PCP in 3-5 days, continue follow up with cardiology as instructed. Time Spent with Patient Time attestation: Total time spent providing and/or coordinating discharge services: DS: Data Data Completed and Pending Labs on day of discharge: Labs from last 24 hours 11/28/24 11/27/24 11/27/24 03:07 23:08 20:01 WBC 7.6 RBC 3.86 L Hgb 11.4 L Hct 36.8 L MCV 95.3 MCH 29.5 MCHC 31.0 L RDW 14.1 Plt Count 223 MPV 9.8 Immature Gran % (Auto) 0.4 Neut % (Auto) 63.3 Lymph % (Auto) 22.9 [place] % (Auto) 8.0 Eos % (Auto) 4.5 H Baso % (Auto) 0.9 Lymph # (Auto) 1.75 [place] # (Auto) 0.6 Eos # (Auto) 0.3 Baso # (Auto) 0.1 Abs Immat Gran (auto) 0.03 Absolute Neuts (auto) 4.8 Absolute Nucleated RBC 0.000 Nucleated RBC % 0.0 PT INR APTT 139.1 H Cancelled Sodium 137 Potassium 3.9 Chloride 108 H Carbon Dioxide 26 Anion Gap 3 L BUN 15 D Creatinine 0.55 L Estim Creat Clear Calc 75 Estimated GFR > 60 Glucose 100 Lactic Acid 0.6 L Calcium 8.4 Magnesium 2.2 Total Bilirubin 0.3 AST 45 H ALT 34 Alkaline Phosphatase 64 Troponin I 1.480 H* D 2.170 H* 2.110 H* Total Protein 6.0 L Albumin 3.3 L 11/27/24 11/27/24 20:01 17:00 WBC RBC Hgb Hct MCV MCH MCHC RDW Plt Count MPV Immature Gran % (Auto) Neut % (Auto) Lymph % (Auto) [place] % (Auto) Eos % (Auto) Baso % (Auto) Lymph # (Auto) [place] # (Auto) Eos # (Auto) Baso # (Auto) Abs Immat Gran (auto) Absolute Neuts (auto) Absolute Nucleated RBC Nucleated RBC % PT 14.0 INR 1.1 APTT 50.9 H Sodium Potassium Chloride Carbon Dioxide Anion Gap BUN Creatinine Estim Creat Clear Calc Estimated GFR Glucose Lactic Acid Calcium Magnesium Total Bilirubin AST ALT Alkaline Phosphatase Troponin I 2.410 H* Total Protein Albumin Discharge Plan Discharge Attending physician on discharge: Shmuel Lomas Consulting providers: Miguel Thomson; Jose Carlos Angelo Discharging Clinician: Shmuel Lomas Anticipated Discharge Date/Time: 11/28/24 16:15 Patient Disposition: Home Activity: as tolerated Diet: as tolerated and heart healthy Patient Instructions: Antibiotic Form, A-fib (Atrial Fibrillation) (DC) Patient Language: Yakut Stand Alone Forms: General Discharge Information Follow-up/Referrals: Rita Agrawal APRN [Primary Care Provider] - (F/u with PCP in 3-5 days ) Jose Carlos Angelo DO [Physician] - (F/u with PCP in 3-5 days ) Discharge Medications: New atorvastatin 40 mg Tablet 40 mg PO HS 30 Days Qty: 30 1RF metoprolol tartrate 25 mg Tablet 25 mg PO Q12HR 30 Days Qty: 60 1RF aspirin 325 mg Tablet,Delayed Release (Dr/Ec) 325 mg PO QAM 30 Days Qty: 30 1RF Continued fexofenadine-pseudoephedrine [Rbie-D 12 Hour] 60-120 mg tablet extended release 12 hr 1 tablet PO Q12H PRN (Reason: Allergy Symptoms) albuterol sulfate [Ventolin HFA] 90 mcg/actuation HFA aerosol inhaler 2 inh INHALATION Q4H PRN (Reason: shortness of breath or wheezing) Qty: 18 5RF alendronate 70 mg tablet 70 mg PO WEEKLY Qty: 1 0RF Trelegy Ellipta 100-62.5-25 mcg blister with device 1 inh inhalation Q24H Qty: 60 2RF cholecalciferol (vitamin D3) 125 mcg (5,000 unit) capsule 5,000 unit PO ONCE anastrozole 1 mg tablet 1 mg PO DAILY nitrofurantoin monohyd/m-cryst [Macrobid] 100 mg capsule 100 mg PO Q12H 7 Days Qty: 14 0RF Rx Instructions: must administer with a meal/food Date of admission: 11/27/24 14:11 Primary Care Provider: Rita Agrawal Admitting Provider: Beti Freitas Attending physician on admission: Beti Freitas Condition: Improved
--- OUTSIDE RECORDS SUMMARY | 2024-11-29 07:27 | XMS_ITS | Clinical Summary ---
Author Organization [facility] At [facility] Address [address] [place] [address] Care Team Providers Care Surgical First Assistant Name Role Phone Stefano Mosquera MD Primary Care Provider [phone] Allergies Active Allergy Reactions Criticality Noted Date [...] from 11/17/2020:Stage IA(cT1b, cN0, cM0, G3, ER+, DE+, HER2+) - Signed by Ximena Harkins MD [...] Months Immunizations Immunization Administration Dates Next Due ([employer])(12 YR UP) COVID-19 VACCINE - EMERGENCY USE AUTHORIZATION, MRNA, [id number](PF) 30 MCG/0.3 ML IM SUSP 06/26/2021 Family [...] 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 on file Not on file Not on file Last Filed Vital Signs Vital Sign Reading Time Taken Comments Blood Pressure 127/83 06/07/2024 1:12 PM LEARNING DEVELOPER Pulse 85 06/07/2024 1:12 PM LEARNING DEVELOPER Temperature 36.1 C (97 F) 06/07/2024 1:12 PM LEARNING DEVELOPER Respiratory Rate 16 06/07/2024 1:12 PM LEARNING DEVELOPER Oxygen Saturation 97% 06/07/2024 1:12 PM LEARNING DEVELOPER Inhaled Oxygen Concentration - - Weight 67.6 kg (149 lb) 06/07/2024 1:12 PM LEARNING DEVELOPER Height 162.6 cm (5' 4 ) 06/07/2024 1:12 PM LEARNING DEVELOPER Body Mass Index 25.58 06/07/2024 1:12 PM LEARNING DEVELOPER Plan of Treatment Upcoming Encounters Date Type Department Care Team (Late st Contact Info) Description 06/12/2025 1:20 PM LEARNING DEVELOPER Office Visit [facility] Oncology and Hematology [facility] [address] [address] [facility] [address] [place] [address] [place] [id number] [address] Health Maintenance Due Date Last [...] series) 2035 Medical Devices Implanted Type Area Qualitative Executive Researcher Device Identifier Shelf Expiration Date Model / Serial / Lot Lang Interpreter Clip Surgiclip Ii Carlos 11.5in [id number] - [id number] Implanted:Qty: 2 on 12/12/2020 by Miguelina Ro MD at [facility] Right: Breast [employer] - [employer]EN 07/18/2025 [id number] / / Explanted Type Area Qualitative Executive Researcher Device Identifier Shelf Expiration Date Model / Serial / Lot Port Pwrprt Clearvue Isp 8fr Mri [id number] Implanted:Qty: 1 on 01/10/2021 by Steve Muhammad III, MD Explanted:Qty: 1 on 07/06/2022 by Ghassan Keith MD Port Left: Chest Wall CR [employer] 03/18/2022 [id number] / / [id number] Description:23 cm reg power port placed lt [...] [employer] BLUE PREFERRED Care Teams Surgical First Assistant Relationship Specialty Start Date End Date Stefano Mosquera MD [address] [place] [id number] PCP - General Family Practice 03/24/23
--- OUTSIDE RECORDS SUMMARY | 2024-11-29 07:27 | XMS_ITS ---
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
== END 2024-11-28 16:40 | disposition home or self-care (01) ==
LOC: ANHED 12:18 → ANHIMU 11-28 16:16
PROVIDERS: Emergency Medicine; Internal Medicine Cardiovascular Disease; Nurse Practitioner Gerontology; Admitting Provider Family Medicine; Emergency Provider Emergency Medicine; PCP Nurse Practitioner Family; Visit Provider Internal Medicine
DX: I48.0 Paroxysmal atrial fibrillation (principal); R79.89 Other specified abnormal findings of blood chemistry; N39.0 Urinary tract infection, site not specified; J45.20 Mild intermittent asthma, uncomplicated; F31.9 Bipolar disorder, unspecified; Z79.51 Long term (current) use of inhaled steroids; Z79.811 Long term (current) use of aromatase inhibitors; Z79.899 Other long term (current) drug therapy; Z85.3 Personal history of malignant neoplasm of breast
CPT/HCPCS: 36415; 71046; 78452; 80053; 81001; 83605; 83690; 83735; 83880; 84443; 84484; 85025; 85610; 85730; 93005; 93017; 93306; 96361; 96365; 96366; 96374; 96375; 99285; A9270; A9502; G0378; J1644; J2785; J7120

== ENCOUNTER 2025-05-30 09:52 | Outpatient (CLI) | payer MEDICARE, SELFPAY ==
--- NOTE | ~2025-05-30 | MR_ITS ---
EXAM/PROCEDURE: MR foot LT wo con HISTORY: stress fracture COMPARISON: None available. TECHNIQUE: Noncontrast multiplanar MRI of the left foot performed FINDINGS: Mildly comminuted distal second digit metatarsal diaphyseal fracture is present with prominent callus formation, however there is diffuse T2-weighted hyperintense signal about the fracture site, and within the callus as well. No suspicious mass or drainable fluid collection/abscess seen. IMPRESSION: Callused distal diaphyseal fracture of the second digit with T2- weighted signal changes concerning for possible re-injury or acute re-fracture. Correlate clinically to exclude infection. For optimal evaluation of the bony matrix, CT examination of the left foot may provide additional beneficial information. Reviewed, dictated and finalized at location A. AND VAULT SERVICE MECHANIC IMPRESSION: Callused distal diaphyseal fracture of the second digit with T2-lindsay ghted signal changes concerning for possible re-injury or acute re-fracture. Co rrelate clinically to exclude infection. For optimal evaluation of the bony mat dmitriy, CT examination of the left foot may provide additional beneficial informat ion.
== END 2025-05-30 09:53 | disposition home or self-care (01) ==
PROVIDERS: PCP Podiatrist Foot & Ankle Surgery; Visit Provider Podiatrist Foot & Ankle Surgery
DX: M84.375A Stress fracture, left foot, initial encounter for fracture (principal)
CPT/HCPCS: 73718